=== PATIENT | male | born 1955 | race Caucasian/White ===

== ENCOUNTER 2020-08-02 10:03 | Outpatient (CLI) | payer BC, SELFPAY ==
[2020-08-02 10:39] LABS: Hematocrit 47.9 % (42.0-52.0); Hemoglobin 16.4 g/dL (14.0-18.0); Mean Corpuscular HGB Conc 34.2 g/dl (32-36); Mean Corpuscular Hemoglobin 30.5 pg (26-34); Mean Platelet Volume 10.7 fl (7.4-10.4); Platelet Count Result 194 k/mm3 (150-375); Red Blood Count 5.38 M/mm3 (4.6-6.20); Red Cell Distribution Width 12.5 % (11.5-14.5); White Blood Count 6.2 K/mm3 (4.5-10.0)
[2020-08-02 10:49] LABS: Alanine Aminotransferase 40 U/L (4-50); Alkaline Phosphatase 87 U/L (38-126); Anion Gap 7 mmol/L (8-16); Aspartate Amino Transferase 30 U/L (17-59); Bilirubin,Total 0.9 mg/dL (0.2-1.3); Blood Urea Nitrogen 16 mg/dL (9-20); Calcium 9.1 mg/dL (8.4-10.2); Carbon Dioxide 28 mmol/L (22-30); Chloride 103 mmol/L (98-107); Cholesterol 188 mg/dL (0-200); Estimated Glomerular Filt Rate > 60; Glucose 119 mg/dL (75-110); HDL Direct 27 mg/dL; Potassium 4.2 mmol/L (3.4-5.0); Sodium 138 mmol/L (137-145); Triglycerides 267 mg/dL (<150)
[2020-08-02 10:53] LABS: Add Urine Microscopic? YES; Appearance Urine Clear (Clear); Bacteria Urine Trace /hpf; Bilirubin Urine Negative (Negative); Blood Urine 2+ (Negative); Color Urine Yellow (Yellow); Glucose Urine UA Negative (Negative); Ketones Urine Negative (Negative); Leukocyte Esterase Ur Negative LEU/UL (NEGATIVE); Mucus Urine Few /lpf; Nitrate Urine Negative (Negative); Protein Urine 1+ mg/dL (Negative); Specific Grav Ur 1.019 (1.001-1.035); Squamous Epithelial Cell Urine Moderate /hpf (Few); Urobilinogen Urine Negative mg/dL (<2.0); WBC Urine 0-3 /hpf (0-3)
[2020-08-02 11:00] LABS: LDL Cholesterol Direct 119 mg/dL
[2020-08-02 11:20] LABS: Prostate Specific Antigen 1.2 ng/mL (< OR = 4.0)
== END 2020-08-02 10:04 | disposition home or self-care (01) ==
PROVIDERS: PCP Family Medicine; Visit Provider Family Medicine
DX: Z00.00 Encounter for general adult medical examination without abnormal findings (principal); Z12.5 Encounter for screening for malignant neoplasm of prostate; I10 Essential (primary) hypertension
CPT/HCPCS: 36415; 80053; 80061; 81001; 84153; 84443; 85027

== ENCOUNTER 2021-01-24 08:01 | Outpatient (CLI) | payer BC, SELFPAY | END 2021-01-24 08:02 | disposition home or self-care (01) | LOC: ANHCOVIDVC 08:01 | PROVIDERS: PCP Family Medicine | DX: Z23 Encounter for immunization (principal) | CPT/HCPCS: 0001A; 91300 ==

== ENCOUNTER 2021-02-14 08:01 | Outpatient (CLI) | payer BC, SELFPAY | END 2021-02-14 08:02 | disposition home or self-care (01) | LOC: ANHCOVIDVC 08:02 | PROVIDERS: PCP Family Medicine | DX: Z23 Encounter for immunization (principal) | CPT/HCPCS: 0002A; 91300 ==

== ENCOUNTER 2021-07-18 13:19 | Outpatient (CLI) | payer BC, SELFPAY ==
[2021-07-18 13:49] LABS: Hematocrit 46.5 % (42.0-52.0); Hemoglobin 16.1 g/dL (14.0-18.0); Mean Corpuscular HGB Conc 34.6 g/dl (32-36); Mean Corpuscular Hemoglobin 30.6 pg (26-34); Mean Corpuscular Volume 88.2 fl (80-100); Mean Platelet Volume 10.9 fl (7.4-10.4); Platelet Count Result 203 k/mm3 (150-375); Red Blood Count 5.27 M/mm3 (4.6-6.20); Red Cell Distribution Width 12.4 % (11.5-14.5); White Blood Count 7.6 K/mm3 (4.5-10.0)
[2021-07-18 14:01] LABS: Alanine Aminotransferase 68 U/L (4-50); Albumin Level 4.5 g/dL (3.5-5.1); Alkaline Phosphatase 76 U/L (38-126); Anion Gap 8 mmol/L (8-16); Aspartate Amino Transferase 50 U/L (17-59); Bilirubin,Total 0.7 mg/dL (0.2-1.3); Blood Urea Nitrogen 17 mg/dL (9-20); Calcium 9.2 mg/dL (8.4-10.2); Carbon Dioxide 27 mmol/L (22-30); Chloride 103 mmol/L (98-107); Cholesterol 214 mg/dL (0-200); Estimated Glomerular Filt Rate > 60; Glucose 94 mg/dL (65-110); HDL Direct 28 mg/dL; Potassium 4.1 mmol/L (3.4-5.0); Sodium 138 mmol/L (137-145); Triglycerides 300 mg/dL (<150)
[2021-07-18 14:06] LABS: Add Urine Microscopic? YES; Appearance Urine Clear (Clear); Bacteria Urine Trace /hpf; Bilirubin Urine Negative (Negative); Blood Urine 2+ (Negative); Color Urine Yellow (Yellow); Glucose Urine UA Negative (Negative); Ketones Urine Negative (Negative); Leukocyte Esterase Ur Negative LEU/UL (NEGATIVE); Mucus Urine Rare /lpf; Nitrate Urine Negative (Negative); Protein Urine 1+ mg/dL (Negative); Specific Grav Ur 1.018 (1.001-1.035); Squamous Epithelial Cell Urine Rare /hpf (Few); WBC Urine 0-3 /hpf (0-3)
[2021-07-18 14:12] LABS: LDL Cholesterol Direct 141 mg/dL
[2021-07-18 14:46] LABS: Prostate Specific Antigen 1.6 ng/mL (< OR = 4.0)
== END 2021-07-18 13:20 | disposition home or self-care (01) ==
LOC: ANHLAB 13:21
PROVIDERS: PCP Family Medicine; Visit Provider Family Medicine
DX: Z00.00 Encounter for general adult medical examination without abnormal findings (principal); E78.1 Pure hyperglyceridemia; I10 Essential (primary) hypertension; R35.1 Nocturia
CPT/HCPCS: 36415; 80053; 80061; 81001; 84153; 84443; 85027

== ENCOUNTER 2021-12-19 09:04 | Outpatient (CLI) | payer MEDICARE, OTHER, SELFPAY ==
[2021-12-19 09:51] LABS: Alanine Aminotransferase 43 U/L (4-50); Albumin Level 4.3 g/dL (3.5-5.1); Alkaline Phosphatase 85 U/L (38-126); Anion Gap 10 mmol/L (8-16); Aspartate Amino Transferase 40 U/L (17-59); Blood Urea Nitrogen 17 mg/dL (9-20); Calcium 8.7 mg/dL (8.4-10.2); Carbon Dioxide 26 mmol/L (22-30); Chloride 103 mmol/L (98-107); Cholesterol 213 mg/dL (0-200); Estimated Glomerular Filt Rate > 60; Glucose 117 mg/dL (65-110); HDL Direct 27 mg/dL; Potassium 4.5 mmol/L (3.4-5.0); Sodium 139 mmol/L (137-145); Triglycerides 237 mg/dL (<150)
[2021-12-19 10:03] LABS: LDL Cholesterol Direct 122 mg/dL
== END 2021-12-19 09:05 | disposition home or self-care (01) ==
PROVIDERS: PCP Family Medicine; Visit Provider Family Medicine
DX: E78.1 Pure hyperglyceridemia (principal); I10 Essential (primary) hypertension
CPT/HCPCS: 36415; 80053; 80061

== ENCOUNTER 2022-06-14 14:09 | Outpatient (CLI) | payer MEDICARE, OTHER, SELFPAY ==
[2022-06-14 14:50] LABS: Basophils Absolute Auto 0.1 K/mm3 (0.0-0.1); Basophils Percent Auto 0.3 % (0.2-1.2); Hematocrit 41.9 % (42.0-52.0); Hemoglobin 14.6 g/dL (14.0-18.0); Immature Granulocyte Absolute 0.57 K/mm3 (0.00-0.031); Immature Granulocyte Percent A 2.9 % (0-0.5); Lymphocytes Absolute Auto 0.58 K/mm3 (0.9-3.2); Mean Corpuscular HGB Conc 34.8 g/dl (32-36); Mean Corpuscular Hemoglobin 30.4 pg (26-34); Mean Corpuscular Volume 87.3 fl (80-100); Mean Platelet Volume 11.2 fl (7.4-10.4); Monocytes Absolute Auto 1.4 K/mm3 (0.1-0.6); Monocytes Percent Auto 7.1 % (2.6-8.5); Neutrophils Absolute Auto 16.9 K/mm3 (1.3-6.7); Neutrophils Percent Auto 86.7 % (45.5-73.1); Platelet Count Result 186 k/mm3 (150-375); Red Cell Distribution Width 12.4 % (11.5-14.5); White Blood Count 19.5 K/mm3 (4.5-10.0)
[2022-06-14 14:57] LABS: Alanine Aminotransferase 29 U/L (6-50); Albumin Level 3.8 g/dL (3.5-5.1); Alkaline Phosphatase 98 U/L (38-126); Anion Gap 15 mmol/L (8-16); Aspartate Amino Transferase 35 U/L (17-59); Bilirubin,Total 1.1 mg/dL (0.2-1.3); Blood Urea Nitrogen 54 mg/dL (9-20); Calcium 8.6 mg/dL (8.4-10.2); Carbon Dioxide 17 mmol/L (22-30); Chloride 97 mmol/L (98-107); Estimated Glomerular Filt Rate 13; Glucose 157 mg/dL (65-110); Potassium 3.9 mmol/L (3.4-5.0); Sodium 129 mmol/L (137-145)
== END 2022-06-14 14:10 | disposition home or self-care (01) ==
LOC: ANHLAB 14:11
PROVIDERS: PCP Family Medicine; Visit Provider Physician Assistant
DX: R00.0 Tachycardia, unspecified (principal); R06.02 Shortness of breath; R53.81 Other malaise
CPT/HCPCS: 36415; 80053; 85025

== ENCOUNTER 2022-06-14 18:14 | Inpatient (IN) | payer MEDICARE, OTHER, SELFPAY ==
[2022-06-14] VITALS (7 sets, daily range): BP systolic 103–163; BP diastolic 48–86; PULSE 108–140; RESP 24–43; TEMP 36.2–36.5; O2SAT 90–100; BMI 35.9
--- NOTE | ~2022-06-14 | XR_ITS ---
EXAMINATION: XR chest 1V portable INDICATION: Shortness of breath, pneumonia TECHNIQUE: Portable AP chest at 0750 hours COMPARISON: 06/14/2022 FINDINGS: Patchy left basilar airspace opacities persist with slight improvement. No pleural effusion or pneumothorax. The cardiomediastinal silhouette is stable. IMPRESSION: 1. Left basilar airspace opacities with slight improvement, likely pneumonia. Reviewed, dictated and finalized at location B.
--- NOTE | ~2022-06-14 | XR_ITS ---
EXAMINATION: XR chest 2V Exam Date/Time: 06/14/2022 18:54 CDT HISTORY: sob, tacycardic, hasn't urinated in 2 days hx htn Comparison: 1 day prior. RESULT: Lines, tubes, and devices: None. Lungs and pleura: Left lower lobe airspace disease. Cardiomediastinal silhouette: Stable. Other: No acute osseous or upper abdominal finding. IMPRESSION: Left lower lobe pneumonia. Reviewed, dictated and finalized at location K. IMPRESSION: Left lower lobe pneumonia.
--- NOTE | ~2022-06-14 | US_ITS ---
EXAMINATION: US renal BI DATE: 06/15/2022 08:50 INDICATION: Acute renal failure. TECHNIQUE: Multiple ultrasound grayscale images of the kidneys were obtained. COMPARISON: CT abdomen and pelvis 01/29/2018 FINDINGS: The right kidney measures 12.2 x 6.2 x 7.0 cm. The left kidney measures 12.6 x 6.7 x 6.3 cm. The kidn eys demonstrate normal parenchymal echogenicity. There is no hydronephrosis. The bladder is decompres sed by a Robertson catheter. IMPRESSION: 1. Normal kidneys. No hydronephrosis. Reviewed, dictated and finalized at location A.
--- NOTE | 2022-06-14 18:29 | ECG_ITS ---
Measurements Intervals [place] Rate: 124 P: 32 OK: 148 QRS: 34 QRSD: 103 T: 35 QT: 302 QTc: 434 Interpretive Statements SINUS TACHYCARDIA DELAYED PRECORDIAL R/S TRANSITION BORDERLINE T WAVE ABNORMALITY- INFERIOR LEADS BASELINE ARTIFACT- I, II, III ABNORMAL ECG NO PREVIOUS ECG AVAILABLE FOR COMPARISON Electronically Signed On 06-14-2022 19:24:34 CDT by Preet Aragon D.O.
[2022-06-14 18:41] LABS: Hematocrit 43.3 % (42.0-52.0); Hemoglobin 14.8 g/dL (14.0-18.0); Mean Corpuscular HGB Conc 34.2 g/dl (32-36); Mean Corpuscular Hemoglobin 30.2 pg (26-34); Mean Corpuscular Volume 88.4 fl (80-100); Mean Platelet Volume 11.6 fl (7.4-10.4); Platelet Count Result 201 k/mm3 (150-375); Red Cell Distribution Width 12.6 % (11.5-14.5); White Blood Count 21.1 K/mm3 (4.5-10.0)
[2022-06-14 19:14] LABS: SARS-CoV-2 RNA PCR Negative
[2022-06-14 19:17] LABS: Alanine Aminotransferase 45 U/L (6-50); Albumin Level 3.9 g/dL (3.5-5.1); Alkaline Phosphatase 109 U/L (38-126); Anion Gap 21 mmol/L (8-16); Aspartate Amino Transferase 53 U/L (17-59); Bilirubin,Total 1.1 mg/dL (0.2-1.3); Blood Urea Nitrogen 58 mg/dL (9-20); Calcium 8.7 mg/dL (8.4-10.2); Carbon Dioxide 14 mmol/L (22-30); Chloride 98 mmol/L (98-107); Estimated CRCL calculation 14 ml/min; Estimated Glomerular Filt Rate 9; Glucose 156 mg/dL (65-110); Sodium 133 mmol/L (137-145)
--- NOTE | 2022-06-14 19:51 | ED.GENADULT ---
HPI - General Adult General Chief complaint: Unspecified <DARYL Melchor Last Filed: 06/14/22 21:56> Stated complaint: kidney problems <DARYL Melchor Last Filed: 06/14/22 21:56> Time Seen by Provider: 06/14/22 19:25 <DARYL Melchor Last Filed: 06/14/22 21:56> Source: patient <DARYL Melchor Last Filed: 06/14/22 21:56> Mode of arrival: ambulatory <DARYL Melchor Last Filed: 06/14/22 21:56> Limitations: other (Poor historian) <DARYL Melchor Last Filed: 06/14/22 21:56> History of Present Illness HPI narrative: This is a 66-year-old male that presents to the emergency department for abnormal outpatient labs. Reportedly he was seen by his primary care provider today. Had outpatient blood work that showed an elevated white blood cell count. He was prompted to be seen in the ER. Reports over the weekend he started to feel generally unwell. He was not wanting to eat or drink much. He had a couple of episodes of nausea and vomiting. Reports over the last couple of days he has not urinated much. He reports mild shortness of breath and a cough. Denies fever, chest pain, or lower extremity edema. <DARYL Melchor Last Filed: 06/14/22 21:56> Related Data Allergies/adverse reactions: Allergies Allergy/AdvReac Type Severity Reaction Status Date / Time No Known Allergies Allergy Verified 06/14/22 13:13 <DARYL Melchor Last Filed: 06/14/22 21:56> Review of Systems Review of Systems: CONSTITUTIONAL: Denies fever CARDIOVASCULAR: Denies chest pain, or edema. RESPIRATORY: Reports cough and dyspnea. GASTROINTESTINAL: Reports nausea, vomiting. Denies abdominal pain GENITOURINARY: Denies dysuria <DARYL Melchor Last Filed: 06/14/22 21:56> All systems reviewed & are unremarkable except as noted in HPI and below <DARYL Melchor Filed: 06/14/22 21:56> PMFSH Past Medical History Medical History: Medical History (Updated 06/16/22 @ 09:36 by ADAMS Richards) History of adenomatous polyp of colon Hyperglyceridemia Hypertension Metabolic acidosis Obesity <Aide Roach PA-C - Last Filed: 06/14/22 21:56> Surgical History Surgical History: Surgical History History of intraocular lens implant <Aide Roach PA-C - Last Filed: 06/14/22 21:56> Family History Family History: Family History Mother Kidney disease Other Cancer <Aide Roach PA-C - Last Filed: 06/14/22 21:56> Social History Social History: Social History Smoking packs per day: 1 Smoking cigarettes per day: 20.0 Years smoked: 15 Smoking pack-years: 15.00 Smoking status: Former smoker Tobacco type: cigarettes Second hand tobacco smoke exposure: No Smoking end date: 10/08/94 Alcohol intake: current Drinks per week: 4 Substance use: never Substance use type: does not use Gender identity (if verbalized by the patient): Male Spiritual care concerns: No <Aide Roach PA-C - Last Filed: 06/14/22 21:56> Exam Narrative: GENERAL: Well-appearing, well-nourished, and in no acute distress. HEAD: Normocephalic, atraumatic. EYES: EOMI. ENT: Mucous membranes dry. Oropharynx without tonsillar hypertrophy exudate or other lesions. NECK: Supple. No adenopathy or masses. CHEST: Clear to auscultation. No respiratory distress. No wheezes rales or rhonchi HEART: Regular rate and rhythm. No murmur heard. Normal peripheral pulses. ABDOMEN: Soft, nontender, nondistended, normal active bowel sounds. EXTREMITIES: Normal range of motion. No edema. SKIN: Warm, dry, no rash. NEURO: No focal deficits. Alert and oriented x3. PSYCH: Normal mood and affect <Aide Roach PA-C - Last Filed: 06/14/22 21:56> Course
[2022-06-14 20:19] LABS: Hemoglobin A1C 5.8 % (<5.7)
[2022-06-14 20:25] LABS: Lactic Acid Reflex 2.8 mmol/L (0.7-2.0)
[2022-06-14 20:30] LABS: INR 1.3; Partial Thromboplastin Time 35.6 SECONDS (22.3-36.8); Prothrombin Time 15.7 Seconds (11.1-14.7)
[2022-06-14 20:40] LABS: Base Excess ABG -2.5 mEq/l (+/-2.0); Carboxyhemoglobin 0.2 % THb (0-2.0); Device NASAL CANNULA; Fractional Inspired Oxygen 32 %; HCO3 ABG 19.6 mEq/l (22.0-26.0); Methemoglobin ABG 0.3 %THb (0-1.5); Modified Allen's Test Pass; Oxygen Content ABG 18.5 %vol (16.0-22.0); Oxygen Saturation ABG 95.6 % (95.0-100.0); Oxyhemoglobin 93.9 % THb (90.0-100.0); PO2 ABG 71.6 mmHg (80.0-100.0); PO2 FiO2 Ratio Arterial Blood 2.24 %; Reduced Hemoglobin 5.6 %THb (0-5.0); Site Drawn LEFT RADIAL; pH ABG 7.478 (7.350-7.450)
[2022-06-14] MEDS: SODIUM CHLORIDE 0.9% IV 1,000 ML 100 ML IV CONT (21:30)
[2022-06-14] MEDS: SODIUM CHLORIDE 0.9% IV 1,000 ML 999 ML IV CONT (22:30)
--- NOTE | 2022-06-14 22:34 | ADMGEN ---
This patient, Niall Lugo, was admitted to Medical Room 341-01. Patient/family oriented to hospital policies and general routines including ID bracelet, bed and alarms, visiting hours, pain management, procedures, bathroom and other care routines, personal items, smoking policy, room service/diet, and visiting hours. Information on how to activate the Rapid Response Team has been discussed. Patient/Family are encouraged to report perceived risks to care and to ask questions if they do not understand what they are told or what they should do.
[2022-06-14 23:11] LABS: Reflex Lactic Acid Yes or No Add Lactic
[2022-06-15] VITALS (9 sets, daily range): BP systolic 95–111; BP diastolic 52–60; PULSE 94–120; RESP 20–24; TEMP 36.3–37.3; O2SAT 95
[2022-06-15 00:03] LABS: Lactic Acid 1.6 mmol/L (0.7-2.0)
--- NOTE | 2022-06-15 00:29 | PM.IMHP ---
H&P: HPI History of Present Illness Date/Time: 06/15/22 00:29 Chief Complaint: shortness of breath Narrative: This is a 66-year-old male with past medical history significant for hypertension, Dyslipidemia, obesity. patient presents to the emergency room due to shortness of breath, fatigue, fevers, chills, night sweats, poor appetite, poor oral intake, diarrhea, decreased urine output, for the last 5 days or so, patient denies any back pain, abdominal pain, no nausea, no vomiting, no leg swelling, no pedal swelling, no ankle swelling, he has a cough nonproductive, had dysuria and urgency. preliminary workup was significant for chest x-ray with left lower infiltrate creatinine was 4.2 BUN was 54 sodium 129 bicarb 17 chloride 97. patient was unable to give a sample for urinalysis at the time of my visit. Patient is being admitted for further evaluation management and treatment. Review of Systems Review of Systems: Fatigue, dysuria, shortness of breath, dry cough, poor appetite, poor oral intake, diarrhea. Constitutional: Constitutional: Reports chills, Reports fatigue, Reports fever(s), Reports lethargy, Reports malaise, Reports night sweats and Reports poor appetite Eyes: Eyes: Denies change in vision ENT: Denies dysphagia, Denies vertigo, Denies dizziness, Denies odynophagia and Denies disequilibrium Cardiovascular: Cardiovascular: Denies chest pain, Denies syncope, Denies irregular heart rhythm, Denies lightheadedness, Denies palpitations and Denies dyspnea on exertion Respiratory: Respiratory: Denies change in phlegm color, Reports cough, Denies excessive phlegm production, Reports dyspnea, Reports dyspnea on exertion and Denies wheezing Gastrointestinal: Gastrointestinal: Denies abdominal pain, Denies dyspepsia, Denies heartburn, Reports diarrhea and Denies nausea Genitourinary: Genitourinary: Reports dysuria Musculoskeletal: Musculoskeletal: Reports muscle weakness Integumentary/Breasts: Skin/Breast: Denies rash Neurologic: Denies vertigo, Denies dizziness, Denies focal weakness and Denies Sensory deficit (Neuro) Psychiatric: Psychiatric: Reports no additional psychiatric complaints and Reports as per HPI Endocrine: Endocrine: Denies cold intolerance, Denies fatigue, Denies flushing, Denies heat intolerance, Denies polyphagia, Denies polydipsia and Denies palpitations Hematologic/Lymphatic: Hematologic/Lymphatic: Reports no additional hematologic/lymphatic complaints and Reports as per HPI Allergic/Immunologic: Allergic/Immunologic: Reports no additional allergic/immunologic complaints and Reports as per HPI [facility] Past Medical History Medical History (Updated 06/15/22 @ 13:54 by ADAMS Richards) History of adenomatous polyp of colon Hyperglyceridemia Hypertension Metabolic acidosis Obesity Surgical History Surgical History History of intraocular lens implant Family History Family History Mother Kidney disease Other Cancer Social History Social History Smoking packs per day: 1 Smoking cigarettes per day: 20.0 Years smoked: 15 Smoking pack-years: 15.00 Smoking status: Former smoker Tobacco type: cigarettes Second hand tobacco smoke exposure: No Smoking end date: 10/08/94 Alcohol intake: current Drinks per week: 4 Substance use: never Substance use type: does not use Gender identity (if verbalized by the patient): Male Spiritual care concerns: No Meds Home Medications and Allergies Home Medications Medication Instructions Recorded Confirmed Type losartan 50 mg tablet 50 mg PO DAILY #90 tabs 11/03/21 06/14/22 Rx Allergies Allergy/AdvReac Type Severity Reaction Status Date / Time No Known Allergies Allergy Verified 06/14/22 13:13 Vital Signs Vital Signs - 24 hr 06/14/22
[2022-06-15] MEDS: SODIUM CHLORIDE 0.9% IV 1,000 ML 100 ML IV CONT (01:27)
[2022-06-15 01:46] LABS: Sodium Urine Random 11 meq/L
[2022-06-15 01:56] LABS: Creatinine Urine 386.4 mg/dL
[2022-06-15 06:14] LABS: Basophils Percent Auto 0.3 % (0.2-1.2); Hematocrit 37.5 % (42.0-52.0); Immature Granulocyte Absolute 0.19 K/mm3 (0.00-0.031); Immature Granulocyte Percent A 1.2 % (0-0.5); Lymphocytes Absolute Auto 0.75 K/mm3 (0.9-3.2); Lymphocytes Percent Auto 4.8 % (18.3-44.2); Mean Corpuscular HGB Conc 34.7 g/dl (32-36); Mean Corpuscular Hemoglobin 30.2 pg (26-34); Monocytes Absolute Auto 1.1 K/mm3 (0.1-0.6); Monocytes Percent Auto 6.7 % (2.6-8.5); Neutrophils Absolute Auto 13.7 K/mm3 (1.3-6.7); Platelet Count Result 152 k/mm3 (150-375); Red Blood Count 4.31 M/mm3 (4.6-6.20); Red Cell Distribution Width 12.7 % (11.5-14.5); White Blood Count 15.7 K/mm3 (4.5-10.0)
[2022-06-15 06:28] LABS: Anion Gap 17 mmol/L (8-16); Blood Urea Nitrogen 71 mg/dL (9-20); Calcium 7.7 mg/dL (8.4-10.2); Carbon Dioxide 17 mmol/L (22-30); Chloride 97 mmol/L (98-107); Estimated CRCL calculation 14 ml/min; Estimated Glomerular Filt Rate 9; Glucose 123 mg/dL (65-110); Potassium 3.8 mmol/L (3.4-5.0); Sodium 131 mmol/L (137-145)
--- NOTE | 2022-06-15 09:30 | PM.IMPN ---
Progress Note: A&P Assessment and Plan (1) Acute kidney failure: Qualifiers: Acute renal failure type: unspecified Qualified Code(s): N17.9 - Acute kidney failure, unspecified Code(s): N17.9 - Acute kidney failure, unspecified Status: Acute Assessment and Plan: BUN/Cr 71/6.00 Baseline appears to be 1.0 IV fluids given in the ED Seems to be related to dehydration Continuous fluids changed to bicarbonate at 50ml/hr Nephrology consulted thank you Continue to trend labs Kidney ultrasound showed normal kidneys (2) Pneumonia: Qualifiers: Laterality: left Lung location: lower lobe of lung Pneumonia type: due to unspecified organism Qualified Code(s): J18.9 - Pneumonia, unspecified organism Code(s): J18.9 - Pneumonia, unspecified organism Status: Acute Assessment and Plan: Chest xray shows left lower lobe pneumonia WBC upon arrival elevated at 21.1, currently 15.7 Continue IV antibiotics Trend labs Trend chest xray Sputum culture pending Blood cultures pending Adjust antibiotics to culture results (3) HTN (hypertension): Code(s): I10 - Essential (primary) hypertension Status: Acute Assessment and Plan: BP is 95/60 Hold losartan Continue to trend BP Adjust therapy as indicated (4) Hyperlipidemia: Code(s): E78.5 - Hyperlipidemia, unspecified Status: Acute Assessment and Plan: No medicated Lipid panel in the am (5) Metabolic acidosis: Code(s): E87.2 - Acidosis Status: Acute Assessment and Plan: ABG is metabolic acidosis Bicarb on board Supplement oxygen wean to maintain saturation >90% Probably related to the kidney failure Continue to trend labs Time Spent With Patient Time with patient: Greater than 35 minutes Subjective Date/time seen: 06/15/2230 Interval history: Patient is feeling better today. He stated that they are trying to collect urine to do further studies. It appears that his FENa score was 0.1% which would indicate pre renal. He does have a PNA on the chest xray. He also stated he did not become short of breath until he was walking in from the parking lot. He denies any chest pain, shortness of breath, nausea, vomiting diarrhea constipation. His mother and daughter were in the room and update was given. later in the afternoon Review of Systems Review of Systems: All systems reviewed & are unremarkable except as noted in HPI and below Exam Const: General: cooperative, healthy appearing, no acute distress, well developed, alert and awake Nutritional Appearance: well nourished Orientation/consciousness: patient oriented x3 Limitations: no limitations HENMT: Head: normal to inspection Ears: hearing grossly normal bilaterally General nose exam: Normal external nose present Mouth: Yes Normal oral and palatal mucosa present, Yes lip normal and Yes tongue normal Teeth and gingiva: abnormal tooth and associated gingiva and poor dentition Eyes: General: appearance normal, both eyes and all related structures Neck: Neck: normal visual inspection, full ROM, trachea midline and supple Chest: Chest palpation & inspection: normal inspection of the chest Resp: Effort & Inspection: normal respiratory effort and able to speak in complete sentences Auscultation: clear to auscultation bilaterally Cardio: Jugular venous distension: no JVD Rate: regular rate Rhythm: regular rhythm Heart sounds: S1 normal heart sound present and S2 normal heart sound present Peripheral pulses: Peripheral pulses 2+ throughout GI: Inspection: normal to inspection GI Palp: Yes Soft to palpation and No Tenderness to palpation present (GI) Auscultation: normal bowel sounds Urinary Catheter: Urinary Catheter: patent and draining and urine clear Skin: General skin exam: normal color and no rashes or lesions no
--- NOTE | 2022-06-15 09:30 | P.PNIM_ITS ---
Progress Note: A&P Assessment and Plan (1) Acute kidney failure: Qualifiers: Acute renal failure type: unspecified Qualified Code(s): N17.9 - Acute kidney failure, unspecified Code(s): N17.9 - Acute kidney failure, unspecified Status: Acute Assessment and Plan: * BUN/Cr 71/6.00 * Baseline appears to be 1.0 * IV fluids given in the ED * Seems to be related to dehydration * Continuous fluids changed to bicarbonate at 50ml/hr * Nephrology consulted thank you * Continue to trend labs * Kidney ultrasound showed normal kidneys (2) Pneumonia: Qualifiers: Laterality: left Lung location: lower lobe of lung Pneumonia type: due to unspecified organism Qualified Code(s): J18.9 - Pneumonia, unspecified organism Code(s): J18.9 - Pneumonia, unspecified organism Status: Acute Assessment and Plan: * Chest xray shows left lower lobe pneumonia * WBC upon arrival elevated at 21.1, currently 15.7 * Continue IV antibiotics * Trend labs * Trend chest xray * Sputum culture pending * Blood cultures pending * Adjust antibiotics to culture results (3) HTN (hypertension): Code(s): I10 - Essential (primary) hypertension Status: Acute Assessment and Plan: * BP is 95/60 * Hold losartan * Continue to trend BP * Adjust therapy as indicated (4) Hyperlipidemia: Code(s): E78.5 - Hyperlipidemia, unspecified Status: Acute Assessment and Plan: * No medicated * Lipid panel in the am (5) Metabolic acidosis: Code(s): E87.2 - Acidosis Status: Acute Assessment and Plan: * ABG is metabolic acidosis * Bicarb on board * Supplement oxygen wean to maintain saturation >90% * Probably related to the kidney failure * Continue to trend labs Time Spent With Patient Time with patient: Greater than 35 minutes Subjective Date/time seen: 06/15/22 0930 Interval history: Patient is feeling better today. He stated that they are trying to collect urine to do further studies. It appears that his FENa score was 0.1% which would indicate pre renal. He does have a PNA on the chest xray. He also stated he did not become short of breath until he was walking in from the parking lot. He denies any chest pain, shortness of breath, nausea, vomiting diarrhea constipation. His mother and daughter were in the room and update was given. later in the afternoon Review of Systems Review of Systems: All systems reviewed & are unremarkable except as noted in HPI and below Exam Const: General: cooperative, healthy appearing, no acute distress, well developed, alert and awake Nutritional Appearance: well nourished Orientation/consciousness: patient oriented x3 Limitations: no limitations HENMT: Head: normal to inspection Ears: hearing grossly normal bilaterally General nose exam: Normal external nose present Mouth: Yes Normal oral and palatal mucosa present, Yes lip normal and Yes tongue normal Teeth and gingiva: abnormal tooth and associated gingiva and poor dentition Eyes: General: appearance normal, both eyes and all related structures Neck: Neck: normal visual inspection, full ROM, trachea midline and supple Chest: Chest palpation & inspection: normal inspection of the chest Resp: Effort & Inspection: normal respiratory effort and able
[2022-06-15 10:33] LABS: Urea Random Urine 455 MG/DL
--- NOTE | 2022-06-15 13:33 | PM.CNNEP ---
Assessment and Plan Assessment and plan (1) Acute kidney failure: Qualifiers: Acute renal failure type: unspecified Qualified Code(s): N17.9 - Acute kidney failure, unspecified Code(s): N17.9 - Acute kidney failure, unspecified Status: Acute Assessment and Plan: The patient has underlying normal kidney function. The patient has acute kidney injury. renal ultrasound is normal. Urine electrolytes are pre renal. No urinalysis done. He might be dehydrated. He has not eaten for 5 days. He also has pneumonia which means increased respiratory rate and therefore increase insensible loss. His urine sodium is low and his urine creatinine is very high also indicating dehydration. He has been getting some IV fluids. The patient has pneumonia. This can also affect his kidneys as well. He is getting antibiotics and supportive care. Other causes include glomerulonephritis . Usually people have other extrarenal manifestations which he does not have, And also high blood pressure and edema which he does not have either. will see what his urinalysis shows. Allergic interstitial nephritis is unlikely because he is not on any new medications. Rhabdomyolysis is always a possibility, especially with infections. Will check a CPK. At this point will get the CPK, urinalysis, and continue IV fluids. Will check another creatinine tomorrow. I am hoping hydration alone is enough to improve the renal function such that we do not have to do dialysis. Will follow this along. (2) Pneumonia: Qualifiers: Laterality: left Lung location: lower lobe of lung Pneumonia type: due to unspecified organism Qualified Code(s): J18.9 - Pneumonia, unspecified organism Code(s): J18.9 - Pneumonia, unspecified organism Status: Acute Assessment and Plan: the patient has left lower lobe infiltrate. He is getting antibiotics. Blood and sputum cultures were ordered. (3) Hyperglyceridemia: Code(s): E78.1 - Pure hyperglyceridemia Status: Acute Assessment and Plan: The patient is not on any medications for this. (4) HTN (hypertension): Code(s): I10 - Essential (primary) hypertension Status: Acute Assessment and Plan: He is on losartan at home. This is on hold now with the renal failure. Blood pressures are okay so far. We can add amlodipine if we need something else. (5) Metabolic acidosis: Code(s): E87.2 - Acidosis Status: Acute Assessment and Plan: The patient has a bicarbonate of 17. His anion gap is 17 as well. His normal anion gap is 10. So the delta anion gap is equal to the delta bicarbonate. This is peer high anion gap metabolic acidosis. His lactic acid was a little high yesterday but recheck was normal. Most likely most of the acidosis is from uremic poisoning. His bicarbonate has not improved overnight with IV fluid administration. Will change the IV fluids to bicarbonate it fluid. History of Present Illness Reason for Consult Consult date: 06/15/22 Chief Complaint Chief complaint: Acute Kidney Failure,Pneumonia History of Present Illness Narrative: Niall is a very pleasant 66-year-old gentleman who has multiple medical problems including hypertriglyceridemia, hypertension, obesity. The patient says he felt well until about 5 days ago. He went from being completely normal to having nausea, poor appetite, and could not eat. On the morning of that 1st day he had a small boxed breakfast and did not sit right then he vomited. Said he has not been able to eat anything. 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 He still did not get better and so he called his primary care physician who sent him to get some blood work done. He went to get it done and he was called and sent to the ER. After he had his flat tire fixed he di
[2022-06-15 15:57] LABS: Appearance Urine Cloudy (Clear); Bilirubin Urine Negative (Negative); Blood Urine 3+ (Negative); Color Urine Yellow (Yellow); Glucose Urine UA Negative (Negative); Ketones Urine Negative (Negative); Leukocyte Esterase Ur 2+ LEU/UL (NEGATIVE); Nitrate Urine Negative (Negative); Protein Urine 2+ mg/dL (Negative); Specific Grav Ur >= 1.030 (1.001-1.035); Urobilinogen Urine 0.2 mg/dL (<2.0)
[2022-06-15 16:08] LABS: Amorphous Sediment Urine Few; Bacteria Urine Trace /hpf; Mucus Urine Few /lpf; RBC Urine >75 /hpf (0-2); Squamous Epithelial Cell Urine Many /hpf (Few); WBC Urine >75 /hpf (0-3)
[2022-06-15 16:10] LABS: Add Urine Microscopic? YES
[2022-06-15] MEDS: SODIUM BICARBONATE 8.4% 100 MEQ in WATER, STERILE FOR INJECTION 1,000 ML 50 MEQ IV CONT (16:19)
[2022-06-15 19:04] LABS: Creatine Kinase 4975 U/L (55-170)
[2022-06-16] VITALS (8 sets, daily range): BP systolic 100–109; BP diastolic 58–62; PULSE 75–85; RESP 18–20; TEMP 36.3–36.8; O2SAT 95–97
[2022-06-16 05:22] LABS: Basophils Percent Auto 0.3 % (0.2-1.2); Hematocrit 38.3 % (42.0-52.0); Hemoglobin 13.4 g/dL (14.0-18.0); Immature Granulocyte Percent A 1.3 % (0-0.5); Immature Platelet Fraction Pct 9.2 % (0.9-11.2); Lymphocytes Absolute Auto 0.49 K/mm3 (0.9-3.2); Lymphocytes Percent Auto 6.4 % (18.3-44.2); Mean Corpuscular Hemoglobin 30.7 pg (26-34); Mean Corpuscular Volume 87.6 fl (80-100); Mean Platelet Volume 11.9 fl (7.4-10.4); Monocytes Absolute Auto 0.6 K/mm3 (0.1-0.6); Monocytes Percent Auto 7.6 % (2.6-8.5); Neutrophils Absolute Auto 6.4 K/mm3 (1.3-6.7); Neutrophils Percent Auto 84.4 % (45.5-73.1); Platelet Count Result 137 k/mm3 (150-375); Red Blood Count 4.37 M/mm3 (4.6-6.20); Red Cell Distribution Width 12.8 % (11.5-14.5); White Blood Count 7.6 K/mm3 (4.5-10.0)
[2022-06-16 05:36] LABS: Alanine Aminotransferase 69 U/L (6-50); Albumin Level 3.2 g/dL (3.5-5.1); Alkaline Phosphatase 64 U/L (38-126); Anion Gap 18 mmol/L (8-16); Aspartate Amino Transferase 133 U/L (17-59); Bilirubin,Total 0.4 mg/dL (0.2-1.3); Blood Urea Nitrogen 89 mg/dL (9-20); Calcium 7.3 mg/dL (8.4-10.2); Carbon Dioxide 17 mmol/L (22-30); Chloride 97 mmol/L (98-107); Cholesterol 93 mg/dL (0-200); Estimated CRCL calculation 13 ml/min; Estimated Glomerular Filt Rate 8; Glucose 123 mg/dL (65-110); HDL Direct 10 mg/dL; Magnesium 2.6 mg/dL (1.6-2.3); Phosphorus 7.5 mg/dL (2.5-4.5); Potassium 3.4 mmol/L (3.4-5.0); Sodium 132 mmol/L (137-145); Triglycerides 253 mg/dL (<150)
[2022-06-16 05:45] LABS: LDL Cholesterol Direct 32 mg/dL
[2022-06-16 10:24] LABS: Hepatitis B Surface Antigen Negative (Negative)
[2022-06-16 10:29] LABS: HAV RESULT Negative (Negative); Hepatitis B Core IgM Result Negative (Negative)
[2022-06-16 10:41] LABS: Hepatitis C Virus Antibody Negative (Negative)
[2022-06-16 10:47] LABS: Appearance Urine Cloudy (Clear); Bilirubin Urine Negative (Negative); Blood Urine 3+ (Negative); Color Urine Yellow (Yellow); Glucose Urine UA Negative (Negative); Ketones Urine Negative (Negative); Leukocyte Esterase Ur Trace LEU/UL (Negative); Nitrate Urine Negative (Negative); Protein Urine 2+ mg/dL (Negative); Specific Grav Ur 1.025 (1.001-1.035); Urobilinogen Urine 0.2 mg/dL (<2.0); pH Urine 5.5 (5.0-9.0)
[2022-06-16 11:00] LABS: Amorphous Sediment Urine Few; Bacteria Urine Trace /hpf; Mucus Urine Rare /lpf; RBC Urine >75 /hpf (0-2); WBC Urine 21-30 /hpf
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
[2022-06-16 11:08] LABS: Add Urine Microscopic? YES
--- NOTE | 2022-06-16 13:01 | PM.PNNEP ---
Progress Note: A&P Assessment and Plan (1) Acute kidney failure: Qualifiers: Acute renal failure type: unspecified Qualified Code(s): N17.9 - Acute kidney failure, unspecified Code(s): N17.9 - Acute kidney failure, unspecified Status: Acute Assessment and Plan: The patient has underlying normal kidney function. The patient has acute kidney injury. renal ultrasound is normal. Urine electrolytes are pre renal. UA shows blood, wbcs, rbcs. CK is 4900. I looked at a sample of urine this am and his urine shows ATN casts (muddy brown casts) consistent with ATN. he does not have dysmorphic rbcs nor RBC casts and so I doubt that this is a GN. most likely dehydration and ATN from pneumonia. CK is high but probably not the primary issue. however to protect the kidneys he is on bicarb drip. will try bumex now and in 6 hours and see if we can incite some more urine output. we discussed that his BUN and Cr are very high and if they don't improve soon he may develop uremic symptoms or volume issues. if so he would need dialysis temporarily. (2) Pneumonia: Qualifiers: Laterality: left Lung location: lower lobe of lung Pneumonia type: due to unspecified organism Qualified Code(s): J18.9 - Pneumonia, unspecified organism Code(s): J18.9 - Pneumonia, unspecified organism Status: Acute Assessment and Plan: the patient has left lower lobe infiltrate. He is getting antibiotics. Blood and sputum cultures were ordered. (3) Hyperglyceridemia: Code(s): E78.1 - Pure hyperglyceridemia Status: Acute Assessment and Plan: The patient is not on any medications for this. (4) HTN (hypertension): Code(s): I10 - Essential (primary) hypertension Status: Acute Assessment and Plan: He is on losartan at home. This is on hold now with the renal failure. Blood pressures are okay so far. We can add amlodipine if we need something else. (5) Metabolic acidosis: Code(s): E87.2 - Acidosis Status: Acute Assessment and Plan: The patient has a bicarbonate of 17. no sx from the acidosis. likely due to uremic toxins. he is on a bicarb drip. Subjective Date/time seen: 06/16/22 13:01 Interval history: patient is feeling okay. no nausea. no sob. eating okay still has galvez in. not much urine output. Review of Systems ENT: Comments: The patient feels about the same. No chest pain or shortness of breath eating is just okay. Cardiovascular: Cardiovascular: Reports no additional cardiovascular complaints Respiratory: Respiratory: Reports no additional respiratory complaints Gastrointestinal: Gastrointestinal: Reports no additional gastrointestinal complaints Genitourinary: Genitourinary: Reports no additional male genitourinary complaints Exam Narrative: WDWN in NAD skin no rash head ncat lungs some crackles at left base.no egophony cor reg no rub or gallop abd BS+ nontender and soft ext no edema. Objective Data Vital Signs Vital Signs: Vital Signs - 24 hr 06/15/22 14:00 06/15/22 16:00 06/15/22 20:33 Temperature 36.6 C 36.3 C L Pulse Rate 99 94 94 Respiratory Rate 20 20 Blood Pressure 110/52 L 111/52 L Pulse Oximetry 95 95 Oxygen Delivery 06/15/22 20:00 06/16/22 00:00 06/16/22 04:12 Temperature 36.3 C L Pulse Rate 95 82 85 Respiratory Rate 18 Blood Pressure 100/59 L Pulse Oximetry 95 Oxygen Delivery 06/16/22 04:00 06/16/22 08:45 06/16/22 08:45 Temperature Pulse Rate 76 75 Respiratory Rate Blood Pressure Pulse Oximetry 95 Oxygen Delivery Room Air Intake/Output Intake/Output: Intake & Output 06/13/22 06/14/22 06/15/22 06/16/22 23:59 23:59 23:59 23:59 Intake Total 1300 3162 340 Output Total 530 450 Balance 1300 2632 -110 Meds/Results Medications: Active Medications Generic Name Dose Ro
[2022-06-16] MEDS: SODIUM BICARBONATE 8.4% 100 MEQ in WATER, STERILE FOR INJECTION 1,000 ML 50 MEQ IV CONT (14:04)
[2022-06-16] MEDS: BUMETANIDE INJ 1 MG/4 ML VIAL 2 MG IV PUSH ×2 (15:18→20:40)
[2022-06-17] VITALS (9 sets, daily range): BP systolic 114–118; BP diastolic 57–70; PULSE 58–74; RESP 16–18; TEMP 35.8–36.8; O2SAT 95–96
[2022-06-17 05:54] LABS: Basophils Percent Auto 0.4 % (0.2-1.2); Eosinophils Absolute Auto 0.1 K/mm3 (0-0.3); Hematocrit 39.7 % (42.0-52.0); Hemoglobin 13.7 g/dL (14.0-18.0); Immature Granulocyte Absolute 0.09 K/mm3 (0.00-0.031); Immature Granulocyte Percent A 1.8 % (0-0.5); Lymphocytes Absolute Auto 0.53 K/mm3 (0.9-3.2); Lymphocytes Percent Auto 10.8 % (18.3-44.2); Mean Corpuscular HGB Conc 34.5 g/dl (32-36); Mean Corpuscular Hemoglobin 30.2 pg (26-34); Mean Corpuscular Volume 87.6 fl (80-100); Mean Platelet Volume 12.3 fl (7.4-10.4); Monocytes Absolute Auto 0.7 K/mm3 (0.1-0.6); Monocytes Percent Auto 14.7 % (2.6-8.5); Neutrophils Absolute Auto 3.5 K/mm3 (1.3-6.7); Neutrophils Percent Auto 71.3 % (45.5-73.1); Platelet Count Result 135 k/mm3 (150-375); Red Blood Count 4.53 M/mm3 (4.6-6.20); Red Cell Distribution Width 12.6 % (11.5-14.5); White Blood Count 4.9 K/mm3 (4.5-10.0)
[2022-06-17 06:06] LABS: Albumin Level 3.2 g/dL (3.5-5.1); Anion Gap 19 mmol/L (8-16); Blood Urea Nitrogen 98 mg/dL (9-20); Calcium 7.4 mg/dL (8.4-10.2); Carbon Dioxide 19 mmol/L (22-30); Chloride 96 mmol/L (98-107); Estimated CRCL calculation 16 ml/min; Estimated Glomerular Filt Rate 11; Glucose 152 mg/dL (65-110); Phosphorus 7.4 mg/dL (2.5-4.5); Sodium 134 mmol/L (137-145)
[2022-06-17 06:08] LABS: Alanine Aminotransferase 81 U/L (6-50); Albumin Level 3.2 g/dL (3.5-5.1); Alkaline Phosphatase 66 U/L (38-126); Anion Gap 19 mmol/L (8-16); Aspartate Amino Transferase 117 U/L (17-59); Bilirubin,Total 0.5 mg/dL (0.2-1.3); Blood Urea Nitrogen 98 mg/dL (9-20); Calcium 7.5 mg/dL (8.4-10.2); Carbon Dioxide 19 mmol/L (22-30); Chloride 96 mmol/L (98-107); Creatine Kinase 1078 U/L (55-170); Estimated CRCL calculation 16 ml/min; Estimated Glomerular Filt Rate 10; Glucose 150 mg/dL (65-110); Magnesium 2.6 mg/dL (1.6-2.3); Phosphorus 7.4 mg/dL (2.5-4.5); Sodium 134 mmol/L (137-145)
--- NOTE | 2022-06-17 09:53 | P.PNIM_ITS ---
Progress Note: A&P Assessment and Plan (1) Rhabdomyolysis: Code(s): M62.82 - Rhabdomyolysis Status: Acute Assessment and Plan: * CK Decreased today to 1078 from 4975 yesterday. * Continue IV fluids As ordered by Nephrology of sodium bicarb 100 mil equivalents in sterile water at 50 mL/hour. * Trend urine output * Trend labs * Nephrology on the case * Trend CK * Questionable etiology of dehydration. (2) Acute kidney failure: Qualifiers: Acute renal failure type: unspecified Qualified Code(s): N17.9 - Acute kidney failure, unspecified Code(s): N17.9 - Acute kidney failure, unspecified Status: Acute Assessment and Plan: * BUN/Cr 98/5.4 * Baseline appears to be 1.0 * Seems to be related to dehydration * Continuous fluids changed to bicarbonate at 50ml/hr * Nephrology Managing * Continue to trend labs, concern for uremia * Kidney ultrasound showed normal kidneys (3) Pneumonia: Qualifiers: Laterality: left Lung location: lower lobe of lung Pneumonia type: due to unspecified organism Qualified Code(s): J18.9 - Pneumonia, unspecified organism Code(s): J18.9 - Pneumonia, unspecified organism Status: Acute Assessment and Plan: * Chest xray shows left lower lobe pneumonia * WBC's decreased to 4.9. * Continue IV antibiotics Rocephin and Zithromax. * Trend labs And vital signs * Trend chest xray * Sputum culture pending * Blood cultures NGTD * Adjust antibiotics to culture results preliminary blood cultures are negative as and is preliminary sputum sample. Urine culture is still pending. * Pneumococcal and Legionella are currently pending. (4) Transaminitis: Code(s): R74.01 - Elevation of levels of liver transaminase levels Status: Acute Assessment and Plan: * AST/ALT 117/81 * Hep panel Resulted and is negative. * Continue to trend * Consider RUQ ultrasound if Acute worsening (5) HTN (hypertension): Code(s): I10 - Essential (primary) hypertension Status: Acute Assessment and Plan: * BP is stable * Hold losartan * Continue to trend BP * Adjust therapy as indicated (6) Hyperlipidemia: Code(s): E78.5 - Hyperlipidemia, unspecified Status: Acute Assessment and Plan: * No medicated * Lipid panel Cholesterol 93, Triglycerides 253, LDL 93, HDL 10 * Will hold on starting any medications since liver enzymes are slightly elevated (7) Metabolic acidosis: Code(s): E87.2 - Acidosis Status: Acute Assessment and Plan: * ABG is metabolic acidosis * Bicarb on board * Supplement oxygen wean to maintain saturation >90% * Probably related to the kidney failure * Continue to trend labs * nephrology managing along with medicine Time Spent With Patient Time with patient: 15 - 25 minutes Subjective Date/time seen: 06/17/22 09:32 This patient was examined at the bedside today in interval assessment. He has no new complaints this morning. He reports overall he thinks he is starting to feel better. Labs this morning show an interval decrease in creatinine from 6.6 yesterday down to 5.4 with hydration. In addition his potassium has decreased from 3.4 yesterday to 3.0 today. His CK has decreased from 4975 yesterday to 1078 today. Patient's AST has decreased from 11/06 3 yesterday 02
--- NOTE | 2022-06-17 09:53 | PM.IMPN ---
Progress Note: A&P Assessment and Plan (1) Rhabdomyolysis: Code(s): M62.82 - Rhabdomyolysis Status: Acute Assessment and Plan: CK Decreased today to 1078 from 4975 yesterday. Continue IV fluids As ordered by Nephrology of sodium bicarb 100 mil equivalents in sterile water at 50 mL/hour. Trend urine output Trend labs Nephrology on the case Trend CK Questionable etiology of dehydration. (2) Acute kidney failure: Qualifiers: Acute renal failure type: unspecified Qualified Code(s): N17.9 - Acute kidney failure, unspecified Code(s): N17.9 - Acute kidney failure, unspecified Status: Acute Assessment and Plan: BUN/Cr 98/5.4 Baseline appears to be 1.0 Seems to be related to dehydration Continuous fluids changed to bicarbonate at 50ml/hr Nephrology Managing Continue to trend labs, concern for uremia Kidney ultrasound showed normal kidneys (3) Pneumonia: Qualifiers: Laterality: left Lung location: lower lobe of lung Pneumonia type: due to unspecified organism Qualified Code(s): J18.9 - Pneumonia, unspecified organism Code(s): J18.9 - Pneumonia, unspecified organism Status: Acute Assessment and Plan: Chest xray shows left lower lobe pneumonia WBC's decreased to 4.9. Continue IV antibiotics Rocephin and Zithromax. Trend labs And vital signs Trend chest xray Sputum culture pending Blood cultures NGTD Adjust antibiotics to culture results preliminary blood cultures are negative as and is preliminary sputum sample. Urine culture is still pending. Pneumococcal and Legionella are currently pending. (4) Transaminitis: Code(s): R74.01 - Elevation of levels of liver transaminase levels Status: Acute Assessment and Plan: AST/ALT 117/81 Hep panel Resulted and is negative. Continue to trend Consider RUQ ultrasound if Acute worsening (5) HTN (hypertension): Code(s): I10 - Essential (primary) hypertension Status: Acute Assessment and Plan: BP is stable Hold losartan Continue to trend BP Adjust therapy as indicated (6) Hyperlipidemia: Code(s): E78.5 - Hyperlipidemia, unspecified Status: Acute Assessment and Plan: No medicated Lipid panel Cholesterol 93, Triglycerides 253, LDL 93, HDL 10 Will hold on starting any medications since liver enzymes are slightly elevated (7) Metabolic acidosis: Code(s): E87.2 - Acidosis Status: Acute Assessment and Plan: ABG is metabolic acidosis Bicarb on board Supplement oxygen wean to maintain saturation >90% Probably related to the kidney failure Continue to trend labs nephrology managing along with medicine Time Spent With Patient Time with patient: 15 - 25 minutes Subjective Date/time seen: 06/17/22 09:32 This patient was examined at the bedside today in interval assessment. He has no new complaints this morning. He reports overall he thinks he is starting to feel better. Labs this morning show an interval decrease in creatinine from 6.6 yesterday down to 5.4 with hydration. In addition his potassium has decreased from 3.4 yesterday to 3.0 today. His CK has decreased from 4975 yesterday to 1078 today. Patient's AST has decreased from 11/06 3 yesterday 11/08/2016 today and his ALT increased from 69 yesterday to 81 today. Patient denies that he had any decreased appetite prior to presenting to the emergency room For this provider despite what is mentioned in the emergency room note and the H&P. Patient seems to be a poor historian and is not forthcoming with information. Currently he denies any chest pain or dyspnea, he reports that he has a poor appetite because are food is not good but he reports he is having better output with both urine and bowels. Review of Systems Review of Systems: All systems revi
[2022-06-17] MEDS: POTASSIUM CHLORIDE 20 MEQ TABLET.ER 40 MEQ PO (10:44)
[2022-06-17] MEDS: POTASSIUM CHLORIDE 20 MEQ TABLET.ER PO (10:45)
--- NOTE | 2022-06-17 11:54 | PM.PNNEP ---
Progress Note: A&P Assessment and Plan (1) Acute kidney failure: Qualifiers: Acute renal failure type: unspecified Qualified Code(s): N17.9 - Acute kidney failure, unspecified Code(s): N17.9 - Acute kidney failure, unspecified Status: Acute Assessment and Plan: The patient has underlying normal kidney function. The patient has acute kidney injury. renal ultrasound is normal. Urine electrolytes are pre renal. UA shows blood, wbcs, rbcs. CK is 4900. Urine under the microscope shows muddy brown casts. most likely dehydration and ATN from pneumonia. His creatinine came down to 5.4. CK is down to a 1078. CO2 is up to 19. He responded dramatically to the IV diuretics last night. He made 3000cc overnight. He may have converted to post ATN diuresis so will hold off on more diuretics today. Will continue IV bicarb drip for another day. Repeat CK and renal panel tomorrow. Follow urine output and give diuretics as needed. (2) Pneumonia: Qualifiers: Laterality: left Lung location: lower lobe of lung Pneumonia type: due to unspecified organism Qualified Code(s): J18.9 - Pneumonia, unspecified organism Code(s): J18.9 - Pneumonia, unspecified organism Status: Acute Assessment and Plan: the patient has left lower lobe infiltrate. He is getting antibiotics. Blood and sputum cultures were ordered. (3) Hyperglyceridemia: Code(s): E78.1 - Pure hyperglyceridemia Status: Acute Assessment and Plan: The patient is not on any medications for this. (4) HTN (hypertension): Code(s): I10 - Essential (primary) hypertension Status: Acute Assessment and Plan: He is on losartan at home. This is on hold now with the renal failure. Blood pressures are okay so far. We can add amlodipine if we need something else. (5) Metabolic acidosis: Code(s): E87.2 - Acidosis Status: Acute Assessment and Plan: The patient has a bicarbonate of 19 now. no sx from the acidosis. likely due to uremic toxins. he is on a bicarb drip. Check again tomorrow Subjective Date/time seen: 06/17/22 11:54 Interval history: patient is feeling okay. He denies nausea or vomiting. He ate some breakfast. Exam Narrative: WDWN in NAD skin no rash head ncat lungs some crackles at left base.no egophony cor reg no rub or gallop abd BS+ nontender and soft ext no edema or cyanosis Objective Data Vital Signs Vital Signs: Vital Signs - 24 hr 06/16/22 12:00 06/16/22 14:00 06/16/22 20:53 Temperature 36.7 C 36.8 C Pulse Rate 78 78 76 Respiratory Rate 20 18 Blood Pressure 102/62 109/58 L Pulse Oximetry 96 97 Oxygen Delivery 06/16/22 20:00 06/16/22 20:00 06/17/22 00:00 Temperature Pulse Rate 75 76 69 Respiratory Rate 18 Blood Pressure Pulse Oximetry 97 Oxygen Delivery Room Air 06/17/22 04:00 06/17/22 05:51 06/17/22 08:00 Temperature 36.8 C Pulse Rate 69 71 58 L Respiratory Rate 18 Blood Pressure 118/57 L Pulse Oximetry 96 Oxygen Delivery Intake/Output Intake/Output: Intake & Output 06/14/22 06/15/22 06/16/22 06/17/22 23:59 23:59 23:59 23:59 Intake Total 1300 3162 2280 240 Output Total 530 1050 3000 Balance 1300 2632 1230 -2760 Meds/Results Medications: Active Medications Generic Name Dose Route Start Last Admin Trade Name Brandy PRN Reason Stop Dose Admin Ceftriaxone Sodium/Dextrose 1 gm in 50 mls @ 100 mls/hr 06/15/22 21:00 06/16/22 21:15 Rocephin 1 Gm/D5w 50 Ml IVPB Infused HS HIRAL Infusion Azithromycin 500 mg in 250 mls @ 250 mls/hr 06/15/22 21:00 06/16/22 21:45 Zithromax IVPB Infused HS HIRAL Infusion Sodium Bicarbonate 100 meq/ 1,100 mls @ 50 mls/hr 06/15/22 14:00 06/16/22 14:04 Sterile Water IV CONT 50 mls/hr .Q22H HIRAL Administration Radiology Results: ITS Impressions [facility]
[2022-06-18] VITALS (8 sets, daily range): BP systolic 119–127; BP diastolic 54–66; PULSE 64–87; RESP 16–18; TEMP 36.2–36.6; O2SAT 95–98
[2022-06-18 08:25] LABS: Basophils Percent Auto 0.5 % (0.2-1.2); Eosinophils Absolute Auto 0.1 K/mm3 (0-0.3); Eosinophils Percent Auto 2.7 % (0-4.4); Hematocrit 40.1 % (42.0-52.0); Hemoglobin 13.6 g/dL (14.0-18.0); Immature Granulocyte Absolute 0.08 K/mm3 (0.00-0.031); Immature Granulocyte Percent A 1.8 % (0-0.5); Lymphocytes Absolute Auto 0.85 K/mm3 (0.9-3.2); Lymphocytes Percent Auto 19.1 % (18.3-44.2); Mean Corpuscular HGB Conc 33.9 g/dl (32-36); Mean Corpuscular Hemoglobin 29.9 pg (26-34); Mean Corpuscular Volume 88.1 fl (80-100); Mean Platelet Volume 11.7 fl (7.4-10.4); Monocytes Absolute Auto 0.6 K/mm3 (0.1-0.6); Monocytes Percent Auto 13.7 % (2.6-8.5); Neutrophils Absolute Auto 2.8 K/mm3 (1.3-6.7); Neutrophils Percent Auto 62.2 % (45.5-73.1); Platelet Count Result 154 k/mm3 (150-375); Red Blood Count 4.55 M/mm3 (4.6-6.20); Red Cell Distribution Width 12.8 % (11.5-14.5); White Blood Count 4.4 K/mm3 (4.5-10.0)
[2022-06-18 08:35] LABS: Lactic Acid Reflex 0.9 mmol/L (0.7-2.0)
[2022-06-18 08:38] LABS: Alanine Aminotransferase 101 U/L (6-50); Albumin Level 3.1 g/dL (3.5-5.1); Alkaline Phosphatase 75 U/L (38-126); Anion Gap 12 mmol/L (8-16); Aspartate Amino Transferase 125 U/L (17-59); Bilirubin,Total 0.5 mg/dL (0.2-1.3); Blood Urea Nitrogen 101 mg/dL (9-20); Calcium 7.9 mg/dL (8.4-10.2); Carbon Dioxide 24 mmol/L (22-30); Chloride 99 mmol/L (98-107); Creatine Kinase 310 U/L (55-170); Estimated CRCL calculation 24 ml/min; Estimated Glomerular Filt Rate 17; Glucose 150 mg/dL (65-110); Magnesium 2.8 mg/dL (1.6-2.3); Phosphorus 5.1 mg/dL (2.5-4.5); Potassium 3.4 mmol/L (3.4-5.0); Sodium 135 mmol/L (137-145)
--- NOTE | 2022-06-18 12:41 | PM.PNNEP ---
Progress Note: A&P Assessment and Plan (1) Acute kidney failure: Qualifiers: Acute renal failure type: unspecified Qualified Code(s): N17.9 - Acute kidney failure, unspecified Code(s): N17.9 - Acute kidney failure, unspecified Status: Acute Assessment and Plan: The patient has underlying normal kidney function. The patient has acute kidney injury. renal ultrasound is normal. Urine electrolytes are pre renal. UA shows blood, wbcs, rbcs. CK is 4900. Urine under the microscope shows muddy brown casts. most likely dehydration and ATN from pneumonia. His creatinine came down to 3.6 CK is down to a 310 CO2 is up to 24 he is eating and drinking well. Will stop IV fluids. (2) Pneumonia: Qualifiers: Laterality: left Lung location: lower lobe of lung Pneumonia type: due to unspecified organism Qualified Code(s): J18.9 - Pneumonia, unspecified organism Code(s): J18.9 - Pneumonia, unspecified organism Status: Acute Assessment and Plan: the patient has left lower lobe infiltrate. He is getting antibiotics. Blood and sputum cultures were ordered. (3) Hyperglyceridemia: Code(s): E78.1 - Pure hyperglyceridemia Status: Acute Assessment and Plan: The patient is not on any medications for this. (4) HTN (hypertension): Code(s): I10 - Essential (primary) hypertension Status: Acute Assessment and Plan: Blood pressure doing well off all antihypertensives. (5) Metabolic acidosis: Code(s): E87.2 - Acidosis Status: Acute Assessment and Plan: Resolved Subjective Date/time seen: 06/18/22 12:41 Interval history: patient is feeling okay. up in a chair. eating fine. no sob. Exam Narrative: WDWN in NAD skin no rash head ncat lungs some crackles at left base.no egophony cor reg no rub or gallop abd BS+ nontender and soft ext no edema Objective Data Vital Signs Vital Signs: Vital Signs - 24 hr 06/17/22 15:00 06/17/22 16:00 06/17/22 20:00 Temperature 35.8 C L Pulse Rate 70 69 Respiratory Rate 16 Blood Pressure 114/64 Pulse Oximetry 95 Oxygen Delivery Room Air 06/17/22 22:00 06/17/22 20:00 06/18/22 04:00 Temperature 36.2 C L Pulse Rate 67 74 64 Respiratory Rate 16 Blood Pressure 118/70 Pulse Oximetry 96 Oxygen Delivery 06/18/22 06:00 06/18/22 08:00 06/18/22 12:00 Temperature 36.4 C L Pulse Rate 70 72 80 Respiratory Rate 18 Blood Pressure 127/66 Pulse Oximetry 97 Oxygen Delivery Intake/Output Intake/Output: Intake & Output 06/15/22 06/16/22 06/17/22 06/18/22 23:59 23:59 23:59 23:59 Intake Total 3162 2280 720 Output Total 530 1050 3900 1250 Balance 2632 1230 -3180 -1250 Meds/Results Medications: Active Medications Generic Name Dose Route Start Last Admin Trade Name Freq PRN Reason Stop Dose Admin Ceftriaxone Sodium/Dextrose 1 gm in 50 mls @ 100 mls/hr 06/15/22 21:00 06/17/22 20:34 Rocephin 1 Gm/D5w 50 Ml IVPB 100 mls/hr HS HIRAL Administration Azithromycin 500 mg in 250 mls @ 250 mls/hr 06/15/22 21:00 06/17/22 21:52 Zithromax IVPB 250 mls/hr HS HIRAL Administration Sodium Bicarbonate 100 meq/ 1,100 mls @ 50 mls/hr 06/15/22 14:00 06/16/22 14:04 Sterile Water IV CONT 50 mls/hr .Q22H HIRAL Administration Radiology Results: ITS Impressions Chest X-Ray 06/14/22 19:08 IMPRESSION: Left lower lobe pneumonia. Renal Ultrasound 06/15/22 08:54 IMPRESSION: 1. Normal kidneys. No hydronephrosis. Labs Labs: Laboratory Results - last 24 hr 06/18/22 06/18/22 06/18/22 07:47 07:47 07:48 WBC 4.4 L RBC 4.55 L Hgb 13.6 L Hct 40.1 L MCV 88.1 MCH 29.9 MCHC 33.9 RDW 12.8 Plt Count 154 MPV 11.7 H Immature Gran % (Auto) 1.8 H Neut % (Auto) 62.2 Lymph % (Auto) 19.1 [place] % (Auto) 1
--- NOTE | 2022-06-18 15:03 | P.PNIM_ITS ---
Progress Note: A&P Assessment and Plan (1) Rhabdomyolysis: Code(s): M62.82 - Rhabdomyolysis Status: Acute Assessment and Plan: * CK further Decreased today to 310 * Continue IV fluids As ordered by Nephrology of sodium bicarb 100 mil equivalents in sterile water at 50 mL/hour. * Trend urine output * Trend labs * Nephrology on the case * Trend CK * Dehydration likely secondary to PNA. (2) Acute kidney failure: Qualifiers: Acute renal failure type: unspecified Qualified Code(s): N17.9 - Acute kidney failure, unspecified Code(s): N17.9 - Acute kidney failure, unspecified Status: Acute Assessment and Plan: * BUN/Cr 101/3.6, intervally improved. * Baseline appears to be 1.0 * Seems to be related to dehydration * Continuous fluids changed to bicarbonate at 50ml/hr * Nephrology Managing * Continue to trend labs, concern for uremia * Kidney ultrasound showed normal kidneys (3) Pneumonia: Qualifiers: Laterality: left Lung location: lower lobe of lung Pneumonia type: due to unspecified organism Qualified Code(s): J18.9 - Pneumonia, unspecified organism Code(s): J18.9 - Pneumonia, unspecified organism Status: Acute Assessment and Plan: * Chest xray shows left lower lobe pneumonia * WBC's decreased to 4.9. * Continue IV antibiotics Rocephin and Zithromax. * Trend labs And vital signs * Trend chest xray * Sputum culture pending * Blood cultures NGTD * Adjust antibiotics to culture results preliminary blood cultures are negative as and is preliminary sputum sample. Urine culture is still pending. * Pneumococcal and Legionella are currently pending. (4) Transaminitis: Code(s): R74.01 - Elevation of levels of liver transaminase levels Status: Acute Assessment and Plan: * AST/ALT increased further today to 125/101 from 117/81 yesterday. * Hep panel Resulted and is negative. * Continue to trend * Consider RUQ ultrasound if Acute worsening (5) HTN (hypertension): Code(s): I10 - Essential (primary) hypertension Status: Acute Assessment and Plan: * BP is stable * Hold losartan * Continue to trend BP * Adjust therapy as indicated (6) Hyperlipidemia: Code(s): E78.5 - Hyperlipidemia, unspecified Status: Acute Assessment and Plan: * No medicated * Lipid panel Cholesterol 93, Triglycerides 253, LDL 93, HDL 10 * Will hold on starting any medications since liver enzymes are slightly elevated (7) Metabolic acidosis: Code(s): E87.2 - Acidosis Status: Acute Assessment and Plan: * ABG is metabolic acidosis * Bicarb on board * Supplement oxygen wean to maintain saturation >90% * Probably related to the kidney failure * Continue to trend labs * nephrology managing along with medicine Time Spent With Patient Time with patient: 15 - 25 minutes Subjective Date/time seen: 06/18/22 0834 Pt. was examined at the bedside today in interval assessment. He reports that he is feeling better and he is anxious to go home. He has no pain and he has no dyspnea. No new complaints today. He is being followed and managed also by Nephrology. Review of Systems Review of Systems: All systems reviewed & are unremarkable except as noted in HPI and below Exam Const: General: comfortable Other: Morbidly obese male HENMT: General nose exam: No
--- NOTE | 2022-06-18 15:03 | PM.IMPN ---
Progress Note: A&P Assessment and Plan (1) Rhabdomyolysis: Code(s): M62.82 - Rhabdomyolysis Status: Acute Assessment and Plan: CK further Decreased today to 310 Continue IV fluids As ordered by Nephrology of sodium bicarb 100 mil equivalents in sterile water at 50 mL/hour. Trend urine output Trend labs Nephrology on the case Trend CK Dehydration likely secondary to PNA. (2) Acute kidney failure: Qualifiers: Acute renal failure type: unspecified Qualified Code(s): N17.9 - Acute kidney failure, unspecified Code(s): N17.9 - Acute kidney failure, unspecified Status: Acute Assessment and Plan: BUN/Cr 101/3.6, intervally improved. Baseline appears to be 1.0 Seems to be related to dehydration Continuous fluids changed to bicarbonate at 50ml/hr Nephrology Managing Continue to trend labs, concern for uremia Kidney ultrasound showed normal kidneys (3) Pneumonia: Qualifiers: Laterality: left Lung location: lower lobe of lung Pneumonia type: due to unspecified organism Qualified Code(s): J18.9 - Pneumonia, unspecified organism Code(s): J18.9 - Pneumonia, unspecified organism Status: Acute Assessment and Plan: Chest xray shows left lower lobe pneumonia WBC's decreased to 4.9. Continue IV antibiotics Rocephin and Zithromax. Trend labs And vital signs Trend chest xray Sputum culture pending Blood cultures NGTD Adjust antibiotics to culture results preliminary blood cultures are negative as and is preliminary sputum sample. Urine culture is still pending. Pneumococcal and Legionella are currently pending. (4) Transaminitis: Code(s): R74.01 - Elevation of levels of liver transaminase levels Status: Acute Assessment and Plan: AST/ALT increased further today to 125/101 from 117/81 yesterday. Hep panel Resulted and is negative. Continue to trend Consider RUQ ultrasound if Acute worsening (5) HTN (hypertension): Code(s): I10 - Essential (primary) hypertension Status: Acute Assessment and Plan: BP is stable Hold losartan Continue to trend BP Adjust therapy as indicated (6) Hyperlipidemia: Code(s): E78.5 - Hyperlipidemia, unspecified Status: Acute Assessment and Plan: No medicated Lipid panel Cholesterol 93, Triglycerides 253, LDL 93, HDL 10 Will hold on starting any medications since liver enzymes are slightly elevated (7) Metabolic acidosis: Code(s): E87.2 - Acidosis Status: Acute Assessment and Plan: ABG is metabolic acidosis Bicarb on board Supplement oxygen wean to maintain saturation >90% Probably related to the kidney failure Continue to trend labs nephrology managing along with medicine Time Spent With Patient Time with patient: 15 - 25 minutes Subjective Date/time seen: 06/18/22 0834 Pt. was examined at the bedside today in interval assessment. He reports that he is feeling better and he is anxious to go home. He has no pain and he has no dyspnea. No new complaints today. He is being followed and managed also by Nephrology. Review of Systems Review of Systems: All systems reviewed & are unremarkable except as noted in HPI and below Exam Const: General: comfortable Other: Morbidly obese male HENMT: General nose exam: Normal nares present Mouth: Yes moist mucous membranes Eyes: General: appearance normal, both eyes and all related structures Sclera: sclerae normal Pupils: Equal, round and reactive pupils present EOM: EOMs intact bilaterally Neck: Neck: supple and no JVD Lymphatic: lymphadenopathy not noted Resp: Effort & Inspection: normal respiratory effort Auscultation: crackles on the left at the base Cardio: Rate: regular rate Rhythm: regular rhythm Heart sounds: no gallops, no murmurs and no rubs GI: Inspection: non-distended GI Palp: Yes Soft t
[2022-06-18 15:13] LABS: Pneumococcal Antigen Urine Not Detected (Not Detected)
[2022-06-18 16:20] LABS: Osmolality, Urine 352 mOsm/kg (50-1200)
[2022-06-19] VITALS (10 sets, daily range): BP systolic 121–135; BP diastolic 59–67; PULSE 70–101; RESP 18–20; TEMP 36.4–36.7; O2SAT 96
[2022-06-19 05:27] LABS: Basophils Percent Auto 0.6 % (0.2-1.2); Eosinophils Absolute Auto 0.2 K/mm3 (0-0.3); Eosinophils Percent Auto 3.6 % (0-4.4); Hematocrit 37.8 % (42.0-52.0); Hemoglobin 13.1 g/dL (14.0-18.0); Immature Granulocyte Absolute 0.08 K/mm3 (0.00-0.031); Immature Granulocyte Percent A 1.5 % (0-0.5); Lymphocytes Absolute Auto 1.18 K/mm3 (0.9-3.2); Lymphocytes Percent Auto 22.6 % (18.3-44.2); Mean Corpuscular HGB Conc 34.7 g/dl (32-36); Mean Corpuscular Hemoglobin 30.1 pg (26-34); Mean Corpuscular Volume 86.9 fl (80-100); Mean Platelet Volume 11.4 fl (7.4-10.4); Monocytes Absolute Auto 0.8 K/mm3 (0.1-0.6); Monocytes Percent Auto 15.2 % (2.6-8.5); Neutrophils Absolute Auto 2.9 K/mm3 (1.3-6.7); Neutrophils Percent Auto 56.5 % (45.5-73.1); Platelet Count Result 168 k/mm3 (150-375); Red Blood Count 4.35 M/mm3 (4.6-6.20); Red Cell Distribution Width 12.3 % (11.5-14.5); White Blood Count 5.2 K/mm3 (4.5-10.0)
[2022-06-19 05:46] LABS: Alanine Aminotransferase 99 U/L (6-50); Alkaline Phosphatase 77 U/L (38-126); Anion Gap 11 mmol/L (8-16); Aspartate Amino Transferase 98 U/L (17-59); Bilirubin,Total 0.4 mg/dL (0.2-1.3); Blood Urea Nitrogen 85 mg/dL (9-20); Calcium 7.6 mg/dL (8.4-10.2); Carbon Dioxide 25 mmol/L (22-30); Chloride 102 mmol/L (98-107); Estimated CRCL calculation 33 ml/min; Estimated Glomerular Filt Rate 25; Glucose 118 mg/dL (65-110); Magnesium 2.6 mg/dL (1.6-2.3); Phosphorus 4.5 mg/dL (2.5-4.5); Sodium 138 mmol/L (137-145)
[2022-06-19] MEDS: POTASSIUM CHLORIDE 20 MEQ TABLET 40 MEQ PO (08:14)
--- NOTE | 2022-06-19 12:36 | P.PNNP_ITS ---
Progress Note: A&P Assessment and Plan (1) Acute kidney failure: Qualifiers: Acute renal failure type: unspecified Qualified Code(s): N17.9 - Acute kidney failure, unspecified Code(s): N17.9 - Acute kidney failure, unspecified Status: Acute Assessment and Plan: * likely due to volume depletion in combination with ATN from pneumonia worsened by continues use of ARB therapy prior to admission * evaluation to date: * renal ultrasound without obstruction * urine electrolytes are pre renal * UA with with blood, wbcs, rbcs * CK elevated at 4900 * urine sediment with muddy brown casts * creatinine continues to improve with good urine output * appears to be eating and drinking well * off IVFs * follow trend of repeat labs and UOP (2) Pneumonia: Qualifiers: Laterality: left Lung location: lower lobe of lung Pneumonia type: due to unspecified organism Qualified Code(s): J18.9 - Pneumonia, unspecified organism Code(s): J18.9 - Pneumonia, unspecified organism Status: Acute Assessment and Plan: * left lower lobe infiltrate as noted by admission imaging * on antibiotics * culture data noted (3) Metabolic acidosis: Code(s): E87.2 - Acidosis Status: Resolved Assessment and Plan: * resolved * due to renal failure (4) HTN (hypertension): Code(s): I10 - Essential (primary) hypertension Status: Chronic Assessment and Plan: * reasonable control at this time * follow trend of hemodynamics (5) Hypokalemia: Code(s): E87.6 - Hypokalemia Status: Resolved Assessment and Plan: * replaced earlier today * follow trend Will continue to follow. Subjective Date/time seen: 06/19/22 12:36 Chart reviewed -- assuming care from Dr. Stafford; appears to be doing quite well at the time of my visit; breathing/respiratory status is slowly improving as is renal function; no apparent distress voiced; no other issues/events overnight or earlier this morning. Exam Narrative: General: WD/WN male in NAD Heart: normal S1 and S2; no rub Lungs: diminished at left base but otherwise clear Abdomen: soft, nontender, nondistended, positive bowel sounds Extremities: no cyanosis or clubbing; no edema Skin: warm and dry Objective Data Vital Signs Vital Signs: Vital Signs Temp Pulse Resp BP Pulse Ox O2 Del Method 06/19/22 12:00 101 H 06/19/22 08:00 76 06/19/22 08:14 72 20 96 Room Air 06/19/22 04:39 36.4 C 72 20 121/60 96 06/19/22 04:00 82 06/19/22 00:00 70 06/18/22 20:00 86 06/18/22 20:00 87 18 98 Room Air 06/18/22 19:22 36.6 C 87 18 119/54 L 98 Intake/Output Intake/Output: Intake & Output 06/16/22 06/17/22 06/18/22 06/19/22 23:59 23:59 23:59 23:59 Intake Total 2280 1020 540 360 Output Total 1050 3900 2650 1650 Balance 7040 -4211 -2967 -1660 Meds/Results Medications: Active Medications Generic Name Dose Route Start Last Admin Trade Name Freq PRN Reason Stop Dose Admin Cefdinir 300 mg 06/20/22 09:00 Cefdinir 300 Mg Capsule PO 06/23/22 21:01
--- NOTE | 2022-06-19 12:36 | PM.PNNEP ---
Progress Note: A&P Assessment and Plan (1) Acute kidney failure: Qualifiers: Acute renal failure type: unspecified Qualified Code(s): N17.9 - Acute kidney failure, unspecified Code(s): N17.9 - Acute kidney failure, unspecified Status: Acute Assessment and Plan: likely due to volume depletion in combination with ATN from pneumonia worsened by continues use of ARB therapy prior to admission evaluation to date: renal ultrasound without obstruction urine electrolytes are pre renal UA with with blood, wbcs, rbcs CK elevated at 4900 urine sediment with muddy brown casts creatinine continues to improve with good urine output appears to be eating and drinking well off IVFs follow trend of repeat labs and UOP (2) Pneumonia: Qualifiers: Laterality: left Lung location: lower lobe of lung Pneumonia type: due to unspecified organism Qualified Code(s): J18.9 - Pneumonia, unspecified organism Code(s): J18.9 - Pneumonia, unspecified organism Status: Acute Assessment and Plan: left lower lobe infiltrate as noted by admission imaging on antibiotics culture data noted (3) Metabolic acidosis: Code(s): E87.2 - Acidosis Status: Resolved Assessment and Plan: resolved due to renal failure (4) HTN (hypertension): Code(s): I10 - Essential (primary) hypertension Status: Chronic Assessment and Plan: reasonable control at this time follow trend of hemodynamics (5) Hypokalemia: Code(s): E87.6 - Hypokalemia Status: Resolved Assessment and Plan: replaced earlier today follow trend Will continue to follow. Subjective Date/time seen: 06/19/22 12:36 Chart reviewed -- assuming care from Dr. Stafford; appears to be doing quite well at the time of my visit; breathing/respiratory status is slowly improving as is renal function; no apparent distress voiced; no other issues/events overnight or earlier this morning. Exam Narrative: General: WD/WN male in NAD Heart: normal S1 and S2; no rub Lungs: diminished at left base but otherwise clear Abdomen: soft, nontender, nondistended, positive bowel sounds Extremities: no cyanosis or clubbing; no edema Skin: warm and dry Objective Data Vital Signs Vital Signs: Vital Signs Temp Pulse Resp BP Pulse Ox O2 Del Method 06/19/22 12:00 101 H 06/19/22 08:00 76 06/19/22 08:14 72 20 96 Room Air 06/19/22 04:39 36.4 C 72 20 121/60 96 06/19/22 04:00 82 06/19/22 00:00 70 06/18/22 20:00 86 06/18/22 20:00 87 18 98 Room Air 06/18/22 19:22 36.6 C 87 18 119/54 L 98 Intake/Output Intake/Output: Intake & Output 06/16/22 06/17/22 06/18/22 06/19/22 23:59 23:59 23:59 23:59 Intake Total 2280 1020 540 360 Output Total 1050 3900 2650 1650 Balance 4143 -8845 -8736 -6062 Meds/Results Medications: Active Medications Generic Name Dose Route Start Last Admin Trade Name Freq PRN Reason Stop Dose Admin Cefdinir 300 mg 06/20/22 09:00 Cefdinir 300 Mg Capsule PO 06/23/22 21:01 Q12HR HIRAL Ceftriaxone Sodium/Dextrose 1 gm in 50 mls @ 100 mls/hr 06/15/22 21:00 06/18/22 22:00 Rocephin 1 Gm/D5w 50 Ml IVPB 06/19/22 23:59 Infused HS HIRAL Infusion Azithromycin 500 mg in 250 mls @ 250 mls/hr 06/15/22 21:00 06/18/22 21:20 Zithromax IVPB 06/19/22 23:59 Infused HS HIRAL Infusion Radiology Results: ITS Impressions Renal Ultrasound 06/15/22 08:54 IMPRESSION: 1. Normal kidneys. No hydronephrosis. Chest X-Ray 06/19/22 08:21 IMPRESSION: 1. Left basilar airspace opacities with slight improvement, likely pneumonia. Labs Labs: Laboratory Tests 06/19/22 05:11 06/19/22 05:11
--- NOTE | 2022-06-19 12:48 | P.PNIM_ITS ---
Progress Note: A&P Assessment and Plan (1) Rhabdomyolysis: Code(s): M62.82 - Rhabdomyolysis Status: Acute Assessment and Plan: * Continue IV fluids As ordered by Nephrology of sodium bicarb 100 mil equivalents in sterile water at 50 mL/hour. * Trend urine output * Trend labs * Nephrology on the case * Dehydration likely secondary to PNA. (2) Acute kidney failure: Qualifiers: Acute renal failure type: unspecified Qualified Code(s): N17.9 - Acute kidney failure, unspecified Code(s): N17.9 - Acute kidney failure, unspecified Status: Acute Assessment and Plan: * BUN/Cr 85/2.6, intervally improved. * Baseline appears to be 1.0 * Seems to be related to dehydration * Continuous fluids changed to bicarbonate at 50ml/hr * Nephrology Managing * Continue to trend labs, concern for uremia * Kidney ultrasound showed normal kidneys (3) Pneumonia: Qualifiers: Laterality: left Lung location: lower lobe of lung Pneumonia type: due to unspecified organism Qualified Code(s): J18.9 - Pneumonia, unspecified organism Code(s): J18.9 - Pneumonia, unspecified organism Status: Acute Assessment and Plan: * Chest xray shows left lower lobe pneumonia, repeated today shows interval improvement in the PNA. * WBC's normal * Not meeting sepsis criteria. * Continue IV antibiotics Rocephin and Zithromax. * Trend labs And vital signs * Sputum culture negative * Blood cultures NGTD * Adjust antibiotics to culture results preliminary blood cultures are negative as and is preliminary sputum sample. Urine culture is still pending. * Pneumococcal Negative and Legionella currently pending. (4) Transaminitis: Code(s): R74.01 - Elevation of levels of liver transaminase levels Status: Acute Assessment and Plan: * AST/ALT increased further today to 98/99 from 125/101 yesterday. * Hep panel Resulted and is negative. * Continue to trend * Consider RUQ ultrasound if Acute worsening (5) HTN (hypertension): Code(s): I10 - Essential (primary) hypertension Status: Acute Assessment and Plan: * BP is stable * Hold losartan * Continue to trend BP * Adjust therapy as indicated (6) Hyperlipidemia: Code(s): E78.5 - Hyperlipidemia, unspecified Status: Acute Assessment and Plan: * No medicated * Lipid panel Cholesterol 93, Triglycerides 253, LDL 93, HDL 10 * Will hold on starting any medications since liver enzymes are slightly elevated (7) Metabolic acidosis: Code(s): E87.2 - Acidosis Status: Acute Assessment and Plan: * ABG is metabolic acidosis * Bicarb on board * Supplement oxygen wean to maintain saturation >90% * Probably related to the kidney failure * Continue to trend labs * nephrology managing along with medicine (8) Hypokalemia: Code(s): E87.6 - Hypokalemia Status: Acute Assessment and Plan: - Potassium was low at 3.0 today. He was given 40 mEq supplemental. Time Spent With Patient Time with patient: 15 - 25 minutes Subjective Date/time seen: 06/19/22 1125 Pt. was examined at the bedside and has no complaints this AM. He states that he feels better overall and that his breathing is improved. His renal function is further improved today and his repeat CXR shows interval improvement in the appearance of his PNA. Overall he appears that his metabolic status has greatly improved and he is approaching baseline.
--- NOTE | 2022-06-19 12:48 | PM.IMPN ---
Progress Note: A&P Assessment and Plan (1) Rhabdomyolysis: Code(s): M62.82 - Rhabdomyolysis Status: Acute Assessment and Plan: Continue IV fluids As ordered by Nephrology of sodium bicarb 100 mil equivalents in sterile water at 50 mL/hour. Trend urine output Trend labs Nephrology on the case Dehydration likely secondary to PNA. (2) Acute kidney failure: Qualifiers: Acute renal failure type: unspecified Qualified Code(s): N17.9 - Acute kidney failure, unspecified Code(s): N17.9 - Acute kidney failure, unspecified Status: Acute Assessment and Plan: BUN/Cr 85/2.6, intervally improved. Baseline appears to be 1.0 Seems to be related to dehydration Continuous fluids changed to bicarbonate at 50ml/hr Nephrology Managing Continue to trend labs, concern for uremia Kidney ultrasound showed normal kidneys (3) Pneumonia: Qualifiers: Laterality: left Lung location: lower lobe of lung Pneumonia type: due to unspecified organism Qualified Code(s): J18.9 - Pneumonia, unspecified organism Code(s): J18.9 - Pneumonia, unspecified organism Status: Acute Assessment and Plan: Chest xray shows left lower lobe pneumonia, repeated today shows interval improvement in the PNA. WBC's normal Not meeting sepsis criteria. Continue IV antibiotics Rocephin and Zithromax. Trend labs And vital signs Sputum culture negative Blood cultures NGTD Adjust antibiotics to culture results preliminary blood cultures are negative as and is preliminary sputum sample. Urine culture is still pending. Pneumococcal Negative and Legionella currently pending. (4) Transaminitis: Code(s): R74.01 - Elevation of levels of liver transaminase levels Status: Acute Assessment and Plan: AST/ALT increased further today to 98/99 from 125/101 yesterday. Hep panel Resulted and is negative. Continue to trend Consider RUQ ultrasound if Acute worsening (5) HTN (hypertension): Code(s): I10 - Essential (primary) hypertension Status: Acute Assessment and Plan: BP is stable Hold losartan Continue to trend BP Adjust therapy as indicated (6) Hyperlipidemia: Code(s): E78.5 - Hyperlipidemia, unspecified Status: Acute Assessment and Plan: No medicated Lipid panel Cholesterol 93, Triglycerides 253, LDL 93, HDL 10 Will hold on starting any medications since liver enzymes are slightly elevated (7) Metabolic acidosis: Code(s): E87.2 - Acidosis Status: Acute Assessment and Plan: ABG is metabolic acidosis Bicarb on board Supplement oxygen wean to maintain saturation >90% Probably related to the kidney failure Continue to trend labs nephrology managing along with medicine (8) Hypokalemia: Code(s): E87.6 - Hypokalemia Status: Acute Assessment and Plan: - Potassium was low at 3.0 today. He was given 40 mEq supplemental. Time Spent With Patient Time with patient: 15 - 25 minutes Subjective Date/time seen: 06/19/22 1125 Pt. was examined at the bedside and has no complaints this AM. He states that he feels better overall and that his breathing is improved. His renal function is further improved today and his repeat CXR shows interval improvement in the appearance of his PNA. Overall he appears that his metabolic status has greatly improved and he is approaching baseline. He has no new complaints today of CP, dyspnea, N/V/D/urinary complaints of burning, urgency, any fatigue or weakness and no headache, dizziness, or lightheadedness. Review of Systems Review of Systems: All systems reviewed & are unremarkable except as noted in HPI and below Exam Const: General: comfortable Other: Morbidly obese male HENMT: General nose exam: Normal nares present Mouth: Yes moist mucous membranes Eyes: General: appearance normal, both eyes and a
[2022-06-20] VITALS: PULSE 70
[2022-06-20 04:00] VITALS: PULSE 66
[2022-06-20 05:29] LABS: Basophils Percent Auto 0.6 % (0.2-1.2); Eosinophils Absolute Auto 0.3 K/mm3 (0-0.3); Eosinophils Percent Auto 4.8 % (0-4.4); Hematocrit 41.6 % (42.0-52.0); Hemoglobin 13.8 g/dL (14.0-18.0); Immature Granulocyte Absolute 0.13 K/mm3 (0.00-0.031); Immature Granulocyte Percent A 2.4 % (0-0.5); Lymphocytes Absolute Auto 1.28 K/mm3 (0.9-3.2); Lymphocytes Percent Auto 23.5 % (18.3-44.2); Mean Corpuscular HGB Conc 33.2 g/dl (32-36); Mean Corpuscular Hemoglobin 29.9 pg (26-34); Mean Platelet Volume 10.8 fl (7.4-10.4); Monocytes Absolute Auto 0.7 K/mm3 (0.1-0.6); Monocytes Percent Auto 12.1 % (2.6-8.5); Neutrophils Absolute Auto 3.1 K/mm3 (1.3-6.7); Neutrophils Percent Auto 56.6 % (45.5-73.1); Platelet Count Result 207 k/mm3 (150-375); Red Blood Count 4.62 M/mm3 (4.6-6.20); Red Cell Distribution Width 12.6 % (11.5-14.5); White Blood Count 5.5 K/mm3 (4.5-10.0)
[2022-06-20 05:49] LABS: Alanine Aminotransferase 113 U/L (6-50); Albumin Level 3.2 g/dL (3.5-5.1); Alkaline Phosphatase 79 U/L (38-126); Anion Gap 13 mmol/L (8-16); Aspartate Amino Transferase 99 U/L (17-59); Bilirubin,Total 0.6 mg/dL (0.2-1.3); Blood Urea Nitrogen 54 mg/dL (9-20); Calcium 7.8 mg/dL (8.4-10.2); Carbon Dioxide 24 mmol/L (22-30); Chloride 104 mmol/L (98-107); Creatine Kinase 97 U/L (55-170); Estimated CRCL calculation 47 ml/min; Estimated Glomerular Filt Rate 38; Glucose 120 mg/dL (65-110); Magnesium 2.4 mg/dL (1.6-2.3); Potassium 3.7 mmol/L (3.4-5.0); Sodium 141 mmol/L (137-145)
[2022-06-20 06:00] VITALS: BP 140/70; PULSE 75; RESP 16; TEMP 36.8; O2SAT 96
[2022-06-20 08:00] VITALS: PULSE 64
[2022-06-20] MEDS: CEFDINIR 300 MG CAPSULE PO (09:05)
--- NOTE | 2022-06-20 09:24 | PM.PNNEP ---
Progress Note: A&P Assessment and Plan (1) Acute kidney failure: Qualifiers: Acute renal failure type: unspecified Qualified Code(s): N17.9 - Acute kidney failure, unspecified Code(s): N17.9 - Acute kidney failure, unspecified Status: Acute Assessment and Plan: resolving likely due to volume depletion in combination with ATN from pneumonia worsened by continues use of ARB therapy prior to admission evaluation to date: renal ultrasound without obstruction urine electrolytes are pre renal UA with with blood, wbcs, rbcs CK elevated at 4900 urine sediment with muddy brown casts creatinine continues to improve with good urine output appears to be eating and drinking well off IVFs follow trend of repeat labs and UOP (2) Pneumonia: Qualifiers: Laterality: left Lung location: lower lobe of lung Pneumonia type: due to unspecified organism Qualified Code(s): J18.9 - Pneumonia, unspecified organism Code(s): J18.9 - Pneumonia, unspecified organism Status: Acute Assessment and Plan: left lower lobe infiltrate as noted by admission imaging on antibiotics culture data noted (3) Metabolic acidosis: Code(s): E87.2 - Acidosis Status: Resolved Assessment and Plan: resolved due to renal failure (4) HTN (hypertension): Code(s): I10 - Essential (primary) hypertension Status: Chronic Assessment and Plan: reasonable control at this time follow trend of hemodynamics (5) Hypokalemia: Code(s): E87.6 - Hypokalemia Status: Resolved Assessment and Plan: stable follow trend Not opposed to discharge from renal perspective - would have him follow-up with PCP along with repeat labs in 2 weeks to ensure ongoing improvement in renal function. Will continue to follow. Subjective Date/time seen: 06/20/22 09:24 Continues to make slow and steady improvement -- continues to feel well and renal function continues to improve with supportive therapy; no other acute complaints voiced at this time; no events overnight or earlier this AM; anxious for discharge. Exam Narrative: General: WD/WN male in NAD Heart: normal S1 and S2; no rub Lungs: diminished at left base but otherwise clear Abdomen: soft, nontender, nondistended, positive bowel sounds Extremities: no cyanosis or clubbing; no edema Skin: warm and intact Objective Data Vital Signs Vital Signs: Vital Signs Temp Pulse Resp BP Pulse Ox O2 Del Method 06/20/22 08:00 Room Air 09/13/22 06:00 36.8 C 75 16 140/70 96 06/20/22 04:00 66 06/20/22 00:00 70 06/19/22 22:00 36.7 C 97 18 135/67 96 06/19/22 20:00 74 06/19/22 16:00 79 06/19/22 14:00 36.7 C 86 18 121/59 L 96 06/19/22 12:00 101 H Intake/Output Intake/Output: Intake & Output 06/17/22 06/18/22 06/19/22 06/20/22 23:59 23:59 23:59 23:59 Intake Total 1020 540 660 Output Total 3900 2650 1650 300 Balance -2880 -2110 -990 -300 Meds/Results Medications: Active Medications Generic Name Dose Route Start Last Admin Trade Name Freq PRN Reason Stop Dose Admin Cefdinir 300 mg 06/20/22 09:00 06/20/22 09:05 Cefdinir 300 Mg Capsule PO 06/23/22 21:01 300 mg Q12HR HIRAL Administration Radiology Results: ITS Impressions Renal Ultrasound 06/15/22 08:54 IMPRESSION: 1. Normal kidneys. No hydronephrosis. Chest X-Ray 06/19/22 08:21 IMPRESSION: 1. Left basilar airspace opacities with slight improvement, likely pneumonia. Labs Labs: Laboratory Tests 06/20/22 05:14 06/20/22 05:14 Microbiology 06/14/22 20:00 Blood Blood Culture - Final 06/14/22 19:59 Blood Blood Culture - Final
--- NOTE | 2022-06-20 09:24 | P.PNNP_ITS ---
Progress Note: A&P Assessment and Plan (1) Acute kidney failure: Qualifiers: Acute renal failure type: unspecified Qualified Code(s): N17.9 - Acute kidney failure, unspecified Code(s): N17.9 - Acute kidney failure, unspecified Status: Acute Assessment and Plan: * resolving * likely due to volume depletion in combination with ATN from pneumonia worsened by continues use of ARB therapy prior to admission * evaluation to date: * renal ultrasound without obstruction * urine electrolytes are pre renal * UA with with blood, wbcs, rbcs * CK elevated at 4900 * urine sediment with muddy brown casts * creatinine continues to improve with good urine output * appears to be eating and drinking well * off IVFs * follow trend of repeat labs and UOP (2) Pneumonia: Qualifiers: Laterality: left Lung location: lower lobe of lung Pneumonia type: due to unspecified organism Qualified Code(s): J18.9 - Pneumonia, unspecified organism Code(s): J18.9 - Pneumonia, unspecified organism Status: Acute Assessment and Plan: * left lower lobe infiltrate as noted by admission imaging * on antibiotics * culture data noted (3) Metabolic acidosis: Code(s): E87.2 - Acidosis Status: Resolved Assessment and Plan: * resolved * due to renal failure (4) HTN (hypertension): Code(s): I10 - Essential (primary) hypertension Status: Chronic Assessment and Plan: * reasonable control at this time * follow trend of hemodynamics (5) Hypokalemia: Code(s): E87.6 - Hypokalemia Status: Resolved Assessment and Plan: * stable * follow trend Not opposed to discharge from renal perspective - would have him follow-up with PCP along with repeat labs in 2 weeks to ensure ongoing improvement in renal function. Will continue to follow. Subjective Date/time seen: 06/20/22 09:24 Continues to make slow and steady improvement -- continues to feel well and renal function continues to improve with supportive therapy; no other acute complaints voiced at this time; no events overnight or earlier this AM; anxious for discharge. Exam Narrative: General: WD/WN male in NAD Heart: normal S1 and S2; no rub Lungs: diminished at left base but otherwise clear Abdomen: soft, nontender, nondistended, positive bowel sounds Extremities: no cyanosis or clubbing; no edema Skin: warm and intact Objective Data Vital Signs Vital Signs: Vital Signs Temp Pulse Resp BP Pulse Ox O2 Del Method 06/20/22 08:00 Room Air 06/20/22 06:00 36.8 C 75 16 140/70 96 06/20/22 04:00 66 06/20/22 00:00 70 06/19/22 22:00 36.7 C 97 18 135/67 96 06/19/22 20:00 74 06/19/22 16:00 79 06/19/22 14:00 36.7 C 86 18 121/59 L 96 06/19/22 12:00 101 H Intake/Output Intake/Output: Intake & Output 06/17/22 06/18/22 06/19/22 06/20/22 23:59 23:59 23:59 23:59 Intake Total 1020 540 660 Output Total 3900 2650 1650 300 Balance -2880 -2110 -990 -300 Meds/Results Medications: Active Medic
--- NOTE | 2022-06-20 09:34 | P.DS_ITS ---
DS: Admitting Diagnosis Discharge Date 06/20/22 Admitting Diagnosis Pneumonia, acute kidney failure DS: Discharge Diagnosis Discharge Diagnosis (1) Rhabdomyolysis: Code(s): M62.82 - Rhabdomyolysis Status: Acute Assessment and Plan: * IV fluids discontinued at this time. * UOP has been adequate. * CK has trended down to normal today at 97. * Nephrology evaluated and OK with discharge. Will want repeat Metabolic panel in 2 weeks. * Dehydration and acute renal failure likely secondary to PNA. (2) Acute kidney failure: Qualifiers: Acute renal failure type: unspecified Qualified Code(s): N17.9 - Acute kidney failure, unspecified Code(s): N17.9 - Acute kidney failure, unspecified Status: Acute Assessment and Plan: * Renal function has drastically improved and is at 1.8/54 today. * Baseline appears to be 1.0 * Seems to be related to dehydration and infection of PNA. * Fluids have been stopped. * UOP has been more than adequate. * Nephrology clears for discharge and does not need any follow up unless repeat labs in two weeks are abnormal. * Kidney ultrasound showed normal kidneys (3) Pneumonia: Qualifiers: Laterality: left Lung location: lower lobe of lung Pneumonia type: due to unspecified organism Qualified Code(s): J18.9 - Pneumonia, unspecified organism Code(s): J18.9 - Pneumonia, unspecified organism Status: Acute Assessment and Plan: * Chest xray shows left lower lobe pneumonia, repeated CXR shows interval improvement in the PNA. * WBC's normal * Not meeting sepsis criteria. * IV abx discontinued today and he is appropriate for discharge on Cefdinir for 5 days. * Trend labs And vital signs * Sputum culture negative * Blood cultures negative * Physical exam matches objective data findings. (4) Transaminitis: Code(s): R74.01 - Elevation of levels of liver transaminase levels Status: Acute Assessment and Plan: * AST/ALT today to 99/113 today. Pt. will need to follow up with his PCP as an outpatient. * Bilirubin is normal. * Hep panel Resulted and is negative. (5) HTN (hypertension): Code(s): I10 - Essential (primary) hypertension Status: Chronic Assessment and Plan: * BP is stable * Hold Losartan on discharge secondary to renal function. Once at baseline, PCP may opt to restart it, however, the patient's blood pressure has been stable here without it. (6) Hyperlipidemia: Code(s): E78.5 - Hyperlipidemia, unspecified Status: Acute Assessment and Plan: * No medicated * Lipid panel Cholesterol 93, Triglycerides 253, LDL 93, HDL 10 * Will hold on starting any medications since liver enzymes are slightly elevated. PCP will need to address at a later time. (7) Metabolic acidosis: Code(s): E87.2 - Acidosis Status: Resolved Assessment and Plan: * ABG initially demonstrated metabolic acidosis * Pt. received bicarb. * No supplemental oxygen is required for discharge. * Probably related to the kidney failure, now resolved. (8) Hypokalemia: Code(s): E87.6 - Hypokalemia Status: Resolved Assessment and Plan: - Potassium was 3.7 today, resolved. DS: Summary Hospital Course Reason for hospitalization: Acute renal failure Hospital Course: This 66-year-old male patient with significant past medical history of hypertension, dyslipidemia and obesity presented to the emergency ro
--- NOTE | 2022-06-20 09:34 | PM.DS ---
DS: Admitting Diagnosis Discharge Date 06/20/22 Admitting Diagnosis Pneumonia, acute kidney failure DS: Discharge Diagnosis Discharge Diagnosis (1) Rhabdomyolysis: Code(s): M62.82 - Rhabdomyolysis Status: Acute Assessment and Plan: IV fluids discontinued at this time. UOP has been adequate. CK has trended down to normal today at 97. Nephrology evaluated and OK with discharge. Will want repeat Metabolic panel in 2 weeks. Dehydration and acute renal failure likely secondary to PNA. (2) Acute kidney failure: Qualifiers: Acute renal failure type: unspecified Qualified Code(s): N17.9 - Acute kidney failure, unspecified Code(s): N17.9 - Acute kidney failure, unspecified Status: Acute Assessment and Plan: Renal function has drastically improved and is at 1.8/54 today. Baseline appears to be 1.0 Seems to be related to dehydration and infection of PNA. Fluids have been stopped. UOP has been more than adequate. Nephrology clears for discharge and does not need any follow up unless repeat labs in two weeks are abnormal. Kidney ultrasound showed normal kidneys (3) Pneumonia: Qualifiers: Laterality: left Lung location: lower lobe of lung Pneumonia type: due to unspecified organism Qualified Code(s): J18.9 - Pneumonia, unspecified organism Code(s): J18.9 - Pneumonia, unspecified organism Status: Acute Assessment and Plan: Chest xray shows left lower lobe pneumonia, repeated CXR shows interval improvement in the PNA. WBC's normal Not meeting sepsis criteria. IV abx discontinued today and he is appropriate for discharge on Cefdinir for 5 days. Trend labs And vital signs Sputum culture negative Blood cultures negative Physical exam matches objective data findings. (4) Transaminitis: Code(s): R74.01 - Elevation of levels of liver transaminase levels Status: Acute Assessment and Plan: AST/ALT today to 99/113 today. Pt. will need to follow up with his PCP as an outpatient. Bilirubin is normal. Hep panel Resulted and is negative. (5) HTN (hypertension): Code(s): I10 - Essential (primary) hypertension Status: Chronic Assessment and Plan: BP is stable Hold Losartan on discharge secondary to renal function. Once at baseline, PCP may opt to restart it, however, the patient's blood pressure has been stable here without it. (6) Hyperlipidemia: Code(s): E78.5 - Hyperlipidemia, unspecified Status: Acute Assessment and Plan: No medicated Lipid panel Cholesterol 93, Triglycerides 253, LDL 93, HDL 10 Will hold on starting any medications since liver enzymes are slightly elevated. PCP will need to address at a later time. (7) Metabolic acidosis: Code(s): E87.2 - Acidosis Status: Resolved Assessment and Plan: ABG initially demonstrated metabolic acidosis Pt. received bicarb. No supplemental oxygen is required for discharge. Probably related to the kidney failure, now resolved. (8) Hypokalemia: Code(s): E87.6 - Hypokalemia Status: Resolved Assessment and Plan: - Potassium was 3.7 today, resolved. DS: Summary Hospital Course Reason for hospitalization: Acute renal failure Hospital Course: This 66-year-old male patient with significant past medical history of hypertension, dyslipidemia and obesity presented to the emergency room on June 15, 2022 with complaints of dyspnea, fatigue, fevers, chills, night sweats, poor appetite, poor oral intake, diarrhea, decreased urine output for approximately 5 days prior to presentation. At the time of of presentation he denied any acute pain or dyspnea, but did endorse having a productive cough. In addition he had dysuria and urgency. Significant labs on admission were a creatinine of 4.2, BUN of 54, sodium of 129, bicarb of 17, chloride of 97. In addition chest x-ray was
[2022-06-20 12:00] VITALS: PULSE 76
[2022-06-21 13:29] LABS: Legionella pneumophila Ag Ur Detected (Not Detected)
== END 2022-06-20 12:15 | disposition home or self-care (01) | DRG 682 ==
LOC: ANHED 20:03 → ANH3MED 21:35
PROVIDERS: Emergency Medicine; Internal Medicine Nephrology; Nurse Practitioner; Physician Assistant; Admitting Provider Internal Medicine; Emergency Provider Emergency Medicine; PCP Family Medicine; Visit Provider Nurse Practitioner Adult Health
DX: N17.0 Acute kidney failure with tubular necrosis (principal); J18.9 Pneumonia, unspecified organism; E87.2 Acidosis; M62.82 Rhabdomyolysis; Z20.822 Contact with and (suspected) exposure to COVID-19; I10 Essential (primary) hypertension; E78.1 Pure hyperglyceridemia; E86.0 Dehydration; E87.6 Hypokalemia; E66.9 Obesity, unspecified; Z68.35 Body mass index [BMI] 35.0-35.9, adult; Z87.891 Personal history of nicotine dependence; Z86.010 Personal history of colon polyps
CPT/HCPCS: 36415; 36600; 71045; 71046; 76775; 80048; 80053; 80061; 80069; 80074; 81001; 82375; 82550; 82570; 82805; 83036; 83050; 83605; 83735; 83935; 84100; 84300; 84540; 85025; 85055; 85610; 85730; 87040; 87070; 87086; 87205; 87449; 87899; 93005; 96361; 96365; 96368; 99285; A9270; C9803; G0378; J0456; J0696; J7030; U0003; U0005

== ENCOUNTER 2022-07-03 08:02 | Outpatient (CLI) | payer MEDICARE, OTHER, SELFPAY ==
--- NOTE | ~2022-07-03 | XR_ITS ---
EXAMINATION: XR chest 2V DATE: 07/03/2022 08:31 INDICATION: Shortness of breath TECHNIQUE: PA and lateral views of the chest are obtained. COMPARISON: 06/19/2022 FINDINGS: There are persistent but decreased airspace opacities of the left lung base. No pleural eff usion or pneumothorax. The cardiomediastinal silhouette is normal. There is mild thoracic spondylosis . IMPRESSION: 1. Continued improvement of left basilar airspace opacities, consistent with resolving pneumonia. Reviewed, dictated and finalized at location A. IMPRESSION: 1. Continued improvement of left basilar airspace opacities, consistent with re solving pneumonia.
[2022-07-03 08:27] LABS: Basophils Absolute Auto 0.1 K/mm3 (0.0-0.1); Basophils Percent Auto 2.5 % (0.2-1.2); Eosinophils Absolute Auto 0.2 K/mm3 (0-0.3); Eosinophils Percent Auto 3.2 % (0-4.4); Hematocrit 40.8 % (42.0-52.0); Hemoglobin 13.4 g/dL (14.0-18.0); Immature Granulocyte Absolute 0.01 K/mm3 (0.00-0.031); Immature Granulocyte Percent A 0.2 % (0-0.5); Lymphocytes Absolute Auto 2.28 K/mm3 (0.9-3.2); Lymphocytes Percent Auto 40.1 % (18.3-44.2); Mean Corpuscular HGB Conc 32.8 g/dl (32-36); Mean Corpuscular Hemoglobin 30.2 pg (26-34); Mean Corpuscular Volume 91.9 fl (80-100); Mean Platelet Volume 10.7 fl (7.4-10.4); Monocytes Absolute Auto 0.5 K/mm3 (0.1-0.6); Monocytes Percent Auto 8.1 % (2.6-8.5); Neutrophils Absolute Auto 2.6 K/mm3 (1.3-6.7); Neutrophils Percent Auto 45.9 % (45.5-73.1); Platelet Count Result 217 k/mm3 (150-375); Red Blood Count 4.44 M/mm3 (4.6-6.20); Red Cell Distribution Width 12.5 % (11.5-14.5); White Blood Count 5.7 K/mm3 (4.5-10.0)
[2022-07-03 08:36] LABS: Alanine Aminotransferase 37 U/L (6-50); Alkaline Phosphatase 90 U/L (38-126); Anion Gap 13 mmol/L (8-16); Aspartate Amino Transferase 28 U/L (17-59); Bilirubin,Total 0.7 mg/dL (0.2-1.3); Blood Urea Nitrogen 18 mg/dL (9-20); Carbon Dioxide 25 mmol/L (22-30); Chloride 103 mmol/L (98-107); Estimated Glomerular Filt Rate 51; Glucose 115 mg/dL (65-110); Potassium 3.7 mmol/L (3.4-5.0); Sodium 141 mmol/L (137-145)
== END 2022-07-03 08:03 | disposition home or self-care (01) ==
PROVIDERS: PCP Family Medicine; Visit Provider Physician Assistant
DX: J18.9 Pneumonia, unspecified organism (principal); N17.9 Acute kidney failure, unspecified; R74.01 Elevation of levels of liver transaminase levels
CPT/HCPCS: 36415; 71046; 80053; 85025

== ENCOUNTER 2022-08-17 15:10 | Outpatient (CLI) | payer MEDICARE, OTHER, SELFPAY ==
[2022-08-17 16:37] LABS: Hematocrit 43.2 % (42.0-52.0); Hemoglobin 14.8 g/dL (14.0-18.0); Mean Corpuscular HGB Conc 34.3 g/dl (32-36); Mean Corpuscular Volume 87.4 fl (80-100); Mean Platelet Volume 11.1 fl (7.4-10.4); Platelet Count Result 223 k/mm3 (150-375); Red Blood Count 4.94 M/mm3 (4.6-6.20); Red Cell Distribution Width 12.9 % (11.5-14.5); White Blood Count 5.5 K/mm3 (4.5-10.0)
[2022-08-17 16:49] LABS: Alanine Aminotransferase 39 U/L (6-50); Albumin Level 4.5 g/dL (3.5-5.1); Alkaline Phosphatase 89 U/L (38-126); Anion Gap 14 mmol/L (8-16); Aspartate Amino Transferase 37 U/L (17-59); Bilirubin,Total 0.7 mg/dL (0.2-1.3); Blood Urea Nitrogen 19 mg/dL (9-20); Calcium 9.1 mg/dL (8.4-10.2); Carbon Dioxide 25 mmol/L (22-30); Chloride 102 mmol/L (98-107); Estimated Glomerular Filt Rate > 60; Glucose 116 mg/dL (65-110); Potassium 3.7 mmol/L (3.4-5.0); Sodium 141 mmol/L (137-145)
[2022-08-17 17:51] LABS: Appearance Urine Cloudy (Clear); Bilirubin Urine Negative (Negative); Blood Urine 2+ (Negative); Color Urine Yellow (Yellow); Glucose Urine UA Negative (Negative); Ketones Urine Trace mg/dL (Negative); Leukocyte Esterase Ur 1+ LEU/UL (NEGATIVE); Nitrate Urine Positive (Negative); Protein Urine 2+ mg/dL (Negative); Specific Grav Ur 1.025 (1.001-1.035); Urobilinogen Urine 0.2 mg/dL (<2.0)
[2022-08-17 18:01] LABS: Bacteria Urine 1+ /hpf; Mucus Urine Few /lpf; RBC Urine 21-50 /hpf (0-2); Squamous Epithelial Cell Urine Many /hpf (Few); WBC Urine >75 /hpf (0-3)
[2022-08-17 18:02] LABS: Add Urine Microscopic? YES
== END 2022-08-17 15:11 | disposition home or self-care (01) ==
LOC: ANHLAB 15:13
PROVIDERS: PCP Family Medicine; Referring Provider Nurse Practitioner Family; Visit Provider Physician Assistant
DX: N17.9 Acute kidney failure, unspecified (principal); R42 Dizziness and giddiness; E78.1 Pure hyperglyceridemia; I10 Essential (primary) hypertension; R73.01 Impaired fasting glucose; Z86.010 Personal history of colon polyps
CPT/HCPCS: 36415; 80053; 81001; 85027

== ENCOUNTER 2022-08-28 10:53 | Outpatient (CLI) | payer MEDICARE, OTHER, SELFPAY ==
--- NOTE | ~2022-08-28 | US_ITS ---
EXAMINATION: US carotid duplex BI DATE: 08/28/2022 11:20 INDICATION: Dizziness. Giddiness. TECHNIQUE: Grayscale, color Doppler, and pulsed Doppler images of the cervical carotid arteries were obtained. The degree of vessel stenosis is placed in one of the following categories: normal, <50%, 5 0-69%, >=70% but less than near-occlusion, near-occlusion, or total occlusion. Note that percent sten osis relative to normal distal artery lumen diameter is indirectly measured from velocity measurement s as described by Sukumar, et al. Radiology 2003; 229:340-346. Notes: Normal: Peak systolic velocity <125 centimeters/sec and no plaque <50%. Peak systolic velocity <125 ( EDV <40; ICA/CCA PSV ratio <2.0; used these factors only a tandem lesions or low cardiac output or co ntralateral disease) 50-69 %: PSV 125-230 (EDV 40-100; ratio 2-4) >= 70% but less than near occlusion: PSV greater than 230 (EDV > 100; ratio> 4.0) Near Occlusion: PSV that is variable; markedly narrowed lumen Occlusion: Absent flow on color/spectral Doppler and no lumen on adams scale. COMPARISON: None. FINDINGS: RIGHT: The right common carotid artery (CCA) peak systolic velocity (PSV) is 105 cm/s. The right internal ca rotid artery (ICA) PSV is 118 cm/s. The right ICA end-diastolic velocity (EDV) is 30 cm/s. The right ICA/CCA PSV ratio is 1.1. The external carotid artery (ECA) PSV is 91 cm/s. There is antegrade flow i n the right vertebral artery. LEFT: The left CCA PSV is 142 cm/s. The left ICA PSV is 103 cm/s. The left ICA EDV is 24 cm/s. The left ICA /CCA PSV ratio is 0.7. The ECA PSV is 95 cm/s. There is antegrade flow in the left vertebral artery. IMPRESSION: 1. Less than 50% stenosis in the right internal carotid artery by sonographic criteria. 2. Less than 50% stenosis in the left internal carotid artery by sonographic criteria. Reviewed, dictated and finalized at location B. PERFORMANCE CONSULTANT IMPRESSION: 1. Less than 50% stenosis in the right internal carotid artery by sonographic shila beaulieu. 2. Less than 50% stenosis in the left internal carotid artery by sonographic hallie pulido.
== END 2022-08-28 10:54 | disposition home or self-care (01) ==
PROVIDERS: PCP Family Medicine; Visit Provider Nurse Practitioner Family
DX: R42 Dizziness and giddiness (principal); I65.23 Occlusion and stenosis of bilateral carotid arteries
CPT/HCPCS: 93880

== ENCOUNTER 2022-09-26 01:19 | Day surgery (SDC) | payer MEDICARE, OTHER, SELFPAY ==
[2022-09-22 11:03] VITALS: BMI 33.7
--- NOTE | 2022-09-22 11:17 | PC.NURSE ---
Report to the Outpatient Waiting Room, entrance under the green pavilion located off [facility], at time _0630_ on date _09/26/22_. Planned Procedure Time: _0830_. Time changes happen often and if your time is changed the preop area will call you the afternoon before. - You and your visitor will be asked to self-screen and do not enter if you have any COVID symptoms. - Only one visitor is requested with a max of two and NO children visitors are allowed at this time. - The patient visitor may be requested to leave or wait in car when not with patient due to distancing restrictions. - A mask is optional within the hospital. Patients may have clear liquids (water, carbonated beverages, clear teas, apple juice) until 3 hours prior to surgery (0530 AM) with a maximum of 20 ounces. - No food from midnight until time of surgery - Infants may have breast milk until 4 hours before surgery, infant formula 6 hours prior to surgery. - Children will be allowed to drink immediately following surgery. If applicable, please bring a bottle or sippy cup to assist with drinking. Juice, water, soda, and popsicles are readily available. For infants on formula, please bring formula the day of surgery. Pacifiers are allowed. Take the following medications with a SIP of water the morning of surgery: NONE Medications to discontinue per physician NONE Date to take last dose Please no make-up, nail monegasque, hairspray, perfume, deodorant, or body powder the day of surgery. No jewelry (including any body piercings) or valuables the day of surgery, leave them at home. Please take a shower or bath the night before, or the morning of, surgery with an antibacterial soap. Wear comfortable, loose fitting clothing. Children are encouraged to wear pajamas. - Jewelry must be removed prior to entering the operating room. Rings and piercings that are not removed may be cut off. - The hospital will not accept responsibility for valuables. - Please leave all valuables, including medications, at home the day of surgery. If you are going home after surgery, a licensed garbage collector driver must drive you home. - NO public transportation without another adult if you receive anesthesia. - We recommend that an adult stay with you for 24 hours following discharge. - We also recommend that you do not drive, make important decision, drink alcoholic beverages, or take any drugs that were not prescribed by your health care provider for at least 24 hours after your discharge time. For Pediatric surgeries, we recommend two adults accompany the child home. Follow any additional instructions given to you from your surgeon. If you or anyone in your household have experienced Covid symptoms in the past week, please notify your surgeon or the nurse liaison at the phone number below for possible testing. Telephone instructions given to ____PT and asked if any additional questions and then verbalized understanding. Patient advised to call surgeon office or pre surgery nurse liaison [phone] if any additional questions.
[2022-09-26] VITALS (7 sets, daily range): BP systolic 104–168; BP diastolic 53–87; PULSE 71–90; RESP 12–21; TEMP 36.5–36.7; O2SAT 96–100
--- NOTE | ~2022-09-26 | XR_ITS ---
EXAMINATION: XR fluoroscopy no charge DATE: 09/26/2022 08:58 INDICATION: Cystoscopy and transurethral dilation. Complex catheter placement. TECHNIQUE: 3 fluoroscopic images of the pelvis were obtained during procedure performed by Dr. Reginaldo lutz. Radiologist was not present for the imaging or procedure. The amount of fluoroscopy time used dur ing this procedure was 0.5 minutes. COMPARISON: None. FINDINGS/IMPRESSION: Images demonstrate a wire advanced into the bladder and subsequently placement of a larger diameter l ikely Robertson catheter in the bladder. See procedure note for further detail. Reviewed, dictated and finalized at location L. [employer]
--- NOTE | 2022-09-26 07:28 | PM.IMHP ---
H&P: HPI History of Present Illness Date/Time: 09/26/22 07:28 Chief Complaint: urethral/meatal stricture Narrative: 66 year old male with urethral/meatal stricture after having a catheter placed a few months back. Here for further evaluation and management. Review of Systems Review of Systems: All systems reviewed & are unremarkable except as noted in HPI and below PMFSH Past Medical History Medical History History of adenomatous polyp of colon Hyperglyceridemia Hypertension Metabolic acidosis Obesity Surgical History Surgical History History of intraocular lens implant Family History Family History Mother Kidney disease Other Cancer Social History Social History Smoking packs per day: 1 Smoking cigarettes per day: 20.0 Years smoked: 15 Smoking pack-years: 15.00 Smoking status: Former smoker Tobacco type: cigarettes Second hand tobacco smoke exposure: No Smoking end date: 10/08/94 Alcohol intake: current Drinks per week: 4 Substance use: never Substance use type: does not use Gender identity (if verbalized by the patient): Male Spiritual care concerns: No Meds Home Medications and Allergies Home Medications Medication Instructions Recorded Confirmed Type losartan 50 mg tablet 50 mg PO DAILY #90 tabs 11/03/21 09/22/22 Rx magnesium 200 mg tablet 200 mg PO DAILY 09/22/22 09/22/22 History Allergies Allergy/AdvReac Type Severity Reaction Status Date / Time No Known Allergies Allergy Verified 09/26/22 07:16 Vital Signs Vital Signs - 24 hr 09/26/22 06:53 Temperature 36.7 C Pulse Rate 78 Respiratory Rate 18 Blood Pressure 150/71 H Pulse Oximetry 99 Oxygen Delivery Room Air Exam Const: General: cooperative, healthy appearing and no acute distress HENMT: Head: normal to inspection Eyes: General: appearance normal, both eyes and all related structures Chest: Chest palpation & inspection: normal inspection of the chest Resp: Effort & Inspection: normal respiratory effort Cardio: Rate: regular rate Rhythm: regular rhythm : Penis: Yes circumcised Meatus: other (stenosis) Assessment and Plan Assessment and plan (1) Urethral stricture: Code(s): N35.919 - Unspecified urethral stricture, male, unspecified site Status: Acute Assessment and Plan: Plan for cysto, urethral dilation, possible retrograde urethrogram, meatotomy
--- NOTE | 2022-09-26 07:32 | WPDHPUPDATE1 ---
History and Physical Update Update Date/Time: 09/26/22 07:32 History and Physical has been reviewed, including an updated exam of the patient. There are NO changes in the patient's condition. Risks, benefits, and alternatives have been discussed and questions answered. Patient agrees to proceed with procedure.
[2022-09-26] MEDS: LACTATED RINGERS 1,000 ML 30 ML IV CONT (07:38)
--- NOTE | 2022-09-26 07:52 | P.PNAN_ITS ---
Anes - Initial Pre Proc Eval Procedure: Operation Date: 09/26/22 08:30 Proposed Procedures p Cystoscopy, Urethral Dilatation, Possible Retrograde Urethrogram - Bernard Niño MD s Possible Meatotomy - Bernard Niño MD Date/Time: 09/26/22 07:52 Surgeon: Bernard Niño MD Pre Op Diagnosis: Urethral Stricture, Hematuria Patient Data Age: 66 Gender: M Height: 1.78 m Weight: 110 kg Last Vital Signs Temp 36.7 C 09/26/22 06:53 Pulse 78 09/26/22 06:53 Resp 18 09/26/22 06:53 BP 150/71 H 09/26/22 06:53 Pulse Ox 99 09/26/22 06:53 O2 Del Method Room Air 09/26/22 06:53 Allergies Allergy/AdvReac Type Severity Reaction Status Date / Time No Known Allergies Allergy Verified 09/26/22 07:16 Home Medications Medication Instructions Recorded Confirmed Type losartan 50 mg tablet 50 mg PO DAILY #90 tabs 11/03/21 09/22/22 Rx magnesium 200 mg tablet 200 mg PO DAILY 09/22/22 09/22/22 History Patient hx anesthesia problems: none Family hx anesthesia problems: none Results Review: All pre-operative results and documents have been reviewed as part of the pre- operative evaluation. [facility] Past Medical History Medical History History of adenomatous polyp of colon Hyperglyceridemia Hypertension Metabolic acidosis Obesity Surgical History Surgical History History of intraocular lens implant Family History Family History Mother Kidney disease Other Cancer Social History Social History Smoking packs per day: 1 Smoking cigarettes per day: 20.0 Years smoked: 15 Smoking pack-years: 15.00 Smoking status: Former smoker Tobacco type: cigarettes Second hand tobacco smoke exposure: No Smoking end date: 10/08/94 Alcohol intake: current Drinks per week: 4 Substance use: never Substance use type: does not use Gender identity (if verbalized by the patient): Male Spiritual care concerns: No Anes - Eval Final PreProcedure Day of Procedure 09/26/22 07:52 Patient weight: obese Heart: regular rate and rhythm Lungs: clear to auscultation Airway: Mallampati scale class II Neurological: alert and oriented Last oral intake: >/= 8 hours ASA classification: III Emergent: no Anesthetic plan: proceed Anesthesia type and monitoring: general LMA and standard monitoring Results Review: All pre-operative results and documents have been reviewed as part of the pre- operative evaluation. Informed Consent: The patient's anesthetic plan and its attendant risks and benefits were discussed with the patient/family/POA. Questions were solicited and answers provided to the satisfaction of the patient/family/POA.
[2022-09-26] MEDS: ceFAZolin 2 GM/D5W 50 ML 2 GM/50 ML BAG IVPB (08:12)
[2022-09-26] MEDS: LIDOCAINE HCL 2% GEL UROJET 10 ML PKG MUCOUS MEM (08:41)
--- NOTE | 2022-09-26 08:53 | W.PM.PROC2 ---
Procedure Note - Detailed Date of Procedure 09/26/22 Pre-op Diagnosis Urethral Stricture, Hematuria Post-op Diagnosis Same Procedure Performed Urethral dilation, cystoscopy, complex Robertson catheter placement Surgeon Bernard Niño MD Anesthesia General Findings Extremely tight fossa navicularis stricture Description of Procedure Patient is taken to the operative suite correctly identified. Once anesthesia was obtained was placed in dorsal lithotomy position and prepped and draped usual sterile fashion. A could not place any of the scope into the meatus. I could not even really visualize adequately the opening. I then used a [employer] wire and was able to manipulate it through a very pinpoint opening. This was confirmed with fluoroscopic guidance that the wire coiled in the bladder. I then used Amplants dilators and dilated up to 20 [place]ian. A 19 B[place]udian cystoscope was then inserted into the meatus. There were no other strictures noted. Prostate had some mild lateral lobe hypertrophy. The bladder itself was without any evidence of tumors. I then placed an 18 [place] tip catheter over the wire into the bladder. 10 cc were placed into the balloon. Patient was taken recovery stable condition. Plan is to remove the catheter on Sunday and teach patient self dilatation. Please send a copy this report to my office. Estimated Blood Loss 0 Drains Yes Packing No Pathology None sent Complications No immediate complications Condition Stable Disposition PACU
--- NOTE | 2022-09-26 11:02 | SUR.PHASEII ---
RN switched patient to a leg bag and gave him a new 2000mL bag for night time if he wants to use it.
== END 2022-09-26 10:55 | disposition home or self-care (01) ==
PROVIDERS: PCP Family Medicine; Visit Provider Urology
PROC: 0T7D8ZZ Dilation of Urethra, Via Natural or Artificial Opening Endoscopic (ICD-10-PCS; CPT 52281; principal; 2022-09-26 08:30)
DX: N35.911 Unspecified urethral stricture, male, meatal (principal); N40.0 Benign prostatic hyperplasia without lower urinary tract symptoms; R31.9 Hematuria, unspecified; I10 Essential (primary) hypertension; E66.9 Obesity, unspecified; Z68.34 Body mass index [BMI] 34.0-34.9, adult; Z87.891 Personal history of nicotine dependence
CPT/HCPCS: 52281; 99199; A9270; C1726; C1769; J0690; J1100; J2405; J2704; J3010; J7120

== ENCOUNTER 2023-01-01 11:30 | Outpatient (CLI) | payer MEDICARE, OTHER, SELFPAY ==
[2023-01-01 13:05] LABS: Alanine Aminotransferase 33 U/L (6-50); Albumin Level 4.3 g/dL (3.5-5.1); Alkaline Phosphatase 79 U/L (38-126); Anion Gap 7 mmol/L (8-16); Aspartate Amino Transferase 33 U/L (17-59); Blood Urea Nitrogen 21 mg/dL (9-20); Calcium 9.2 mg/dL (8.4-10.2); Carbon Dioxide 27 mmol/L (22-30); Chloride 105 mmol/L (98-107); Estimated Glomerular Filt Rate 55; Glucose 92 mg/dL (65-110); Sodium 139 mmol/L (137-145)
== END 2023-01-01 11:31 | disposition home or self-care (01) ==
PROVIDERS: PCP Family Medicine; Visit Provider Family Medicine
DX: I10 Essential (primary) hypertension (principal)
CPT/HCPCS: 36415; 80053

== ENCOUNTER 2023-01-09 01:12 | Day surgery (SDC) | payer MEDICARE, OTHER, SELFPAY ==
--- NOTE | 2022-12-29 09:14 | PC.NURSE ---
Report to the Outpatient Waiting Room, entrance under the green pavilion located off [facility], at time 1100 on date __01/09/23 . Planned Procedure Time: __1300 . Time changes happen often and if your time is changed the preop area will call you the afternoon before. - You and your visitor will be asked to self-screen and do not enter if you have any COVID symptoms. - Only one visitor is requested with a max of two and NO children visitors are allowed at this time. - The patient visitor may be requested to leave or wait in car when not with patient due to distancing restrictions. - A mask is optional within the hospital at this time. Patients may have clear liquids (water, carbonated beverages, clear teas, apple juice) until 3 hours prior to surgery with a maximum of 20 ounces. - No food from midnight until time of surgery - Infants may have breast milk until 4 hours before surgery, formula 6 hours prior to surgery. - Children will be allowed to drink immediately following surgery. If applicable, please bring a bottle or sippy cup to assist with drinking. Juice, water, soda, and popsicles are readily available. For infants on formula, please bring formula the day of surgery. Pacifiers are allowed. Take the following medications with a SIP of water the morning of surgery: ____NONE DO NOT STOP ANY OF YOUR OTHER PRESCRIPTION MEDICATIONS PRIOR TO SURGERY ?EXCEPT THE FOLLOWING Medications to discontinue per physician ____MAGNESIUM HOLD 3 DAYS .LAST DOSE 01/05/23 Please no make-up, nail uzbek, hairspray, perfume, deodorant, or body powder the day of surgery. No jewelry (including any body piercings) or valuables the day of surgery, leave them at home. Please take a shower or bath the night before, or the morning of, surgery with an antibacterial soap. Wear comfortable, loose fitting clothing. Children are encouraged to wear pajamas. - Jewelry must be removed prior to entering the operating room. Rings and piercings that are not removed may be cut off. - The hospital will not accept responsibility for valuables. - Please leave all valuables, including medications, at home the day of surgery. If you are going home after surgery, a licensed bulk driver must drive you home. - NO public transportation without another adult if you receive anesthesia. - We recommend that an adult stay with you for 24 hours following discharge. - We also recommend that you do not drive, make important decision, drink alcoholic beverages, or take any drugs that were not prescribed by your health care provider for at least 24 hours after your discharge time. For Pediatric surgeries, we recommend two adults accompany the child home. Follow any additional instructions given to you from your surgeon. If you or anyone in your household have experienced Covid symptoms in the past week, please notify your surgeon or the nurse liaison at the phone number below for possible testing. Telephone instructions given to __PATIENT and asked if any additional questions and then verbalized understanding. Patient advised to call surgeon office or pre surgery nurse liaison [phone] if any additional questions.
[2022-12-29 09:24] VITALS: BMI 34.0
[2023-01-09] VITALS (7 sets, daily range): BP systolic 136–165; BP diastolic 76–92; PULSE 76–84; RESP 14–18; TEMP 36.2–36.3; O2SAT 96–99
--- NOTE | ~2023-01-09 | XR_ITS ---
EXAMINATION: XR fluoroscopy no charge DATE: 01/09/2023 13:00 CDT INDICATION: CYSTOSCOPPY / URETHRAL DILATATION . TECHNIQUE: 3 fluoroscopic images of the abdomen and pelvis were obtained during cystoscopy/urethral d ilation performed by the surgeon. I was not present in the operating room. Fluoroscopy exposure time was 8 seconds. DAP [id number] [id number]. COMPARISON: 09/26/2022 FINDINGS: No abnormal calcification. Faint contrast filling of the urinary bladder. Catheter and wire access to the urinary bladder. IMPRESSION: Fluoroscopic documentation of cystoscopy/ureteral dilation. Please refer to the operative note for co mplete procedural details . Reviewed, dictated and finalized at location K. IMPRESSION: Fluoroscopic documentation of cystoscopy/ureteral dilation. Please refer to the operative note for complete procedural details .
--- NOTE | 2023-01-09 08:49 | WPDANESEPPF ---
Anes - Initial Pre Proc Eval Procedure: Operation Date: 01/09/23 13:00 Proposed Procedures p Cystoscopy, Urethral Dilatation with Fluoroscopy - Bernard Niño MD Date/Time: 01/09/23 08:49 Surgeon: Bernard Niño MD Pre Op Diagnosis: urethral stricture Patient Data Age: 67 Gender: M Height: 1.78 m Weight: 107.5 kg Allergies Allergy/AdvReac Type Severity Reaction Status Date / Time No Known Allergies Allergy Verified 01/01/23 10:40 Home Medications Medication Instructions Recorded Confirmed Type magnesium 200 mg tablet 250 mg PO DAILY 09/22/22 01/09/23 History losartan 50 mg tablet 50 mg PO DAILY #90 tabs 11/06/22 01/09/23 Rx meclizine 12.5 mg tablet 12.5 mg PO PRN PRN Dizziness 12/29/22 01/09/23 History Patient hx anesthesia problems: none Family hx anesthesia problems: none Results Review: All pre-operative results and documents have been reviewed as part of the pre-operative evaluation. [facility] Past Medical History Medical History History of adenomatous polyp of colon Hyperglyceridemia Hypertension Metabolic acidosis Obesity Surgical History Surgical History History of intraocular lens implant Family History Family History Mother Kidney disease Other Cancer Social History Social History Smoking packs per day: 1 Smoking cigarettes per day: 20.0 Years smoked: 15 Smoking pack-years: 15.00 Smoking status: Former smoker Tobacco type: cigarettes Second hand tobacco smoke exposure: No Smoking end date: 10/08/96 Alcohol intake: current Drinks per week: 3 Substance use: never Substance use type: does not use Living arrangements: alone Occupation/Education: occupation Gender identity (if verbalized by the patient): Male Sexual Orientation (if Verbalized by the Patient): Straight or Heterosexual Spiritual care concerns: No Anes - Eval Final PreProcedure Day of Procedure 01/09/23 08:49 Patient weight: obese Heart: regular rate and rhythm Lungs: clear to auscultation Airway: Mallampati scale class II Neurological: alert and oriented Last oral intake: >/= 8 hours ASA classification: III Emergent: no Anesthetic plan: proceed Anesthesia type and monitoring: general LMA and standard monitoring Results Review: All pre-operative results and documents have been reviewed as part of the pre-operative evaluation. Informed Consent: The patient's anesthetic plan and its attendant risks and benefits were discussed with the patient/family/POA. Questions were solicited and answers provided to the satisfaction of the patient/family/POA.
[2023-01-09] MEDS: LACTATED RINGERS 1,000 ML 30 ML IV CONT (11:30)
--- NOTE | 2023-01-09 11:54 | WPDHPUPDATE1 ---
History and Physical Update Update Date/Time: 01/09/23 11:54 History and Physical has been reviewed, including an updated exam of the patient. There are NO changes in the patient's condition. Risks, benefits, and alternatives have been discussed and questions answered. Patient agrees to proceed with procedure. Proceed with cysto, urethral dilatation
[2023-01-09] MEDS: ceFAZolin 2 GM/D5W 50 ML 2 GM/50 ML BAG IVPB (12:57)
[2023-01-09] MEDS: LIDOCAINE HCL 2% GEL UROJET 10 ML PKG MUCOUS MEM (13:09)
--- NOTE | 2023-01-09 13:30 | P.OP_ITS ---
Procedure Note - Detailed Date of Procedure 01/09/23 Pre-op Diagnosis urethral stricture Post-op Diagnosis Same Procedure Performed Urethral dilatation with Amplantz dilators, cystoscopy, complex Robertson placement 18 [place] tip Surgeon Bernard Niño MD Anesthesia General Description of Procedure Patient was taken to the operative suite correctly identified. Once anesthesia was obtained he was prepped draped usual sterile fashion. Patient has a very tight pinhole opening at the fossa navicularis. I was able to manipulate a Glidewire through the opening up into the bladder and this was visualized under fluoroscopy. I then dilated with Amplantz dilators from 8 [place]dean to 22 [place]an. A 19 [place] cystoscope was then inserted into the urethra. There were no other strictures noted. Prostate has some mild lateral lobe hypertrophy. The bladder was entered. There were no tumors noted in the bladder. 2% viscous lidocaine was then inserted into the urethra. A 2 [place] tip was then passed over the guidewire and 10 cc were is in which inserted into the balloon. Patient was then taken recovery stable condition. Will plan on Robertson catheter removal on . He will need to be taught self dilatation daily for 1 week then every other day for another week then every 3rd day for 3rd week and then hopefully down to once a a week for a month. Please send a copy of op note to my office Estimated Blood Loss 0 Drains Yes Packing No Pathology None sent Complications No immediate complications Condition Stable Disposition PACU
== END 2023-01-09 15:02 | disposition home or self-care (01) ==
PROVIDERS: PCP Family Medicine; Visit Provider Urology
PROC: 0T7D8ZZ Dilation of Urethra, Via Natural or Artificial Opening Endoscopic (ICD-10-PCS; CPT 52281; principal; 2023-01-09 13:00)
DX: N35.916 Unspecified urethral stricture, male, overlapping sites (principal); I10 Essential (primary) hypertension; E66.9 Obesity, unspecified; Z68.34 Body mass index [BMI] 34.0-34.9, adult; Z87.891 Personal history of nicotine dependence
CPT/HCPCS: 52281; 99199; C1726; C1769; J0690; J1100; J2250; J2405; J2704; J3010; J7120

== ENCOUNTER 2023-09-01 11:09 | Outpatient (CLI) | payer MEDICARE, OTHER, SELFPAY ==
[2023-09-01 11:41] LABS: Hematocrit 49.4 % (42.0-52.0); Hemoglobin 16.5 g/dL (14.0-18.0); Mean Corpuscular HGB Conc 33.4 g/dl (32-36); Mean Corpuscular Hemoglobin 29.7 pg (26-34); Mean Corpuscular Volume 88.8 fl (80-100); Mean Platelet Volume 10.9 fl (7.4-10.4); Platelet Count Result 207 k/mm3 (150-375); Red Blood Count 5.56 M/mm3 (4.6-6.20); Red Cell Distribution Width 12.5 % (11.5-14.5); White Blood Count 6.3 K/mm3 (4.5-10.0)
[2023-09-01 11:48] LABS: Appearance Urine Clear (Clear); Bacteria Urine None Seen /hpf; Bilirubin Urine Negative (Negative); Blood Urine 1+ (Negative); Color Urine Yellow (Yellow); Glucose Urine UA Negative (Negative); Ketones Urine Trace mg/dL (Negative); Leukocyte Esterase Ur Negative LEU/UL (NEGATIVE); Nitrate Urine Negative (Negative); Non Pathogenic Casts 0-2; Protein Urine 1+ mg/dL (Negative); RBC Urine 0-2 /hpf (0-2); Specific Grav Ur 1.021 (1.001-1.035); Squamous Epithelial Cell Urine None seen /hpf (Few); WBC Urine 0-5 /hpf (0-3); pH Urine 5.5 (5.0-9.0)
[2023-09-01 11:51] LABS: Add Urine Microscopic? YES
[2023-09-01 11:56] LABS: Alanine Aminotransferase 36 U/L (6-50); Albumin Level 4.2 g/dL (3.5-5.1); Alkaline Phosphatase 80 U/L (38-126); Anion Gap 11 mmol/L (8-16); Aspartate Amino Transferase 30 U/L (17-59); Blood Urea Nitrogen 23 mg/dL (9-20); Calcium 9.6 mg/dL (8.4-10.2); Carbon Dioxide 23 mmol/L (22-30); Chloride 103 mmol/L (98-107); Cholesterol 217 mg/dL (0-200); Estimated Glomerular Filt Rate 55; Glucose 112 mg/dL (65-110); HDL Direct 28 mg/dL; Potassium 4.5 mmol/L (3.4-5.0); Sodium 137 mmol/L (137-145); Triglycerides 227 mg/dL (<150)
[2023-09-01 12:07] LABS: LDL Cholesterol Direct 121 mg/dL
== END 2023-09-01 11:10 | disposition home or self-care (01) ==
LOC: ANHLAB 11:15
PROVIDERS: PCP Family Medicine; Visit Provider Family Medicine
DX: E78.1 Pure hyperglyceridemia (principal); I10 Essential (primary) hypertension; R53.83 Other fatigue; N17.9 Acute kidney failure, unspecified; E78.5 Hyperlipidemia, unspecified; R35.1 Nocturia
CPT/HCPCS: 36415; 80053; 80061; 81001; 84443; 85027

== ENCOUNTER 2024-08-19 11:11 | Outpatient (CLI) | payer MEDICARE, OTHER, SELFPAY ==
--- NOTE | ~2024-08-19 | US_ITS ---
EXAMINATION: US aorta [facility] DATE: 08/19/2024 11:58 INDICATION: Encounter for screening for cardiovascular disorders TECHNIQUE: Grayscale, color Doppler, and pulsed Doppler images of the aorta and common iliac arteries were obtained. COMPARISON: None. FINDINGS: The proximal aorta measures 2.0 cm in AP diameter. The mid aorta measures 1.3 cm. The distal aorta me asures 1.3 cm. The right common iliac artery measures 0.8 cm. The left common iliac artery measures 1 .3 cm. IMPRESSION: 1. Normal caliber abdominal aorta. Reviewed, dictated and finalized at location B. [employer]
[2024-08-19 11:27] LABS: Hematocrit 48.2 % (42.0-52.0); Hemoglobin 16.4 g/dL (14.0-18.0); Mean Corpuscular Hemoglobin 30.1 pg (26-34); Mean Corpuscular Volume 88.6 fl (80-100); Mean Platelet Volume 10.8 fl (7.4-10.4); Platelet Count Result 175 k/mm3 (150-375); Red Blood Count 5.44 M/mm3 (4.6-6.20); Red Cell Distribution Width 12.4 % (11.5-14.5); White Blood Count 5.8 K/mm3 (4.5-10.0)
[2024-08-19 11:53] LABS: Alanine Aminotransferase 38 U/L (6-50); Albumin Level 4.3 g/dL (3.5-5.1); Alkaline Phosphatase 76 U/L (38-126); Anion Gap 8 mmol/L (4-12); Aspartate Amino Transferase 31 U/L (17-59); Bilirubin,Total 0.7 mg/dL (0.2-1.3); Blood Urea Nitrogen 22 mg/dL (9-20); Carbon Dioxide 26 mmol/L (22-30); Chloride 103 mmol/L (98-107); Cholesterol 182 mg/dL (0-200); Estimated Glomerular Filt Rate 55; Glucose 106 mg/dL (65-110); HDL Direct 30 mg/dL; Magnesium 1.9 mg/dL (1.6-2.3); Potassium 4.5 mmol/L (3.4-5.0); Sodium 137 mmol/L (137-145); Triglycerides 200 mg/dL (<150)
[2024-08-19 12:03] LABS: Add Urine Microscopic? YES; Appearance Urine Clear (Clear); Bacteria Urine None Seen /hpf; Bilirubin Urine Negative (Negative); Blood Urine 2+ (Negative); Color Urine Yellow (Yellow); Glucose Urine UA Negative (Negative); Ketones Urine Negative (Negative); Leukocyte Esterase Ur Negative LEU/UL (Negative); Nitrate Urine Negative (Negative); Non Pathogenic Casts 0-2; Protein Urine 1+ mg/dL (Negative); Specific Grav Ur 1.018 (1.001-1.035); Squamous Epithelial Cell Urine None Seen /hpf (Few); Urobilinogen Urine 0.2 mg/dL (<2.0); WBC Urine 0-5 /hpf (0-3); pH Urine 6.5 (5.0-9.0)
[2024-08-19 12:04] LABS: LDL Cholesterol Direct 110 mg/dL
[2024-08-19 12:08] LABS: Prostate Specific Antigen 1.7 ng/mL (< OR = 4.0)
== END 2024-08-19 11:12 | disposition home or self-care (01) ==
PROVIDERS: PCP Family Medicine; Visit Provider Family Medicine
DX: N17.9 Acute kidney failure, unspecified (principal); E78.5 Hyperlipidemia, unspecified; I10 Essential (primary) hypertension; R35.1 Nocturia; R79.0 Abnormal level of blood mineral; Z12.5 Encounter for screening for malignant neoplasm of prostate
CPT/HCPCS: 36415; 76706; 80053; 80061; 81001; 83735; 84153; 84443; 85027

== ENCOUNTER 2024-11-24 01:20 | Day surgery (SDC) | payer MEDICARE, OTHER, SELFPAY ==
[2024-11-06 15:11] VITALS: BMI 35.4
--- OUTSIDE RECORDS SUMMARY | 2024-11-24 01:24 | XMS_ITS | Referral Summary ---
Author Organization [facility] Address [address] [place] [address] Care Team Providers Care Head Insulation Board Saw Operator Name Role Phone Unavailable Primary Care Provider Unavailabl e Source Comments [facility],non-owned Affiliates and Associated Physician Practices is amultiple site organization consisting of ambulatory clinics and hospital sitesin [place], [place], [place] and [place]. This disclosure is being madepursuant to the Care Everywhere program and may not contain all information available regarding this patient. Last updated 18.[facility] [employer] Social History Tobacco Use Types Packs/Day Years Used Date Smoking Tobacco: Never Assessed Sex and Gender Information Value Date Recorded Sex Assigned at Not on file Gender Identity Not on file Sexual Orientation Not on file Plan of Treatment Not on file
--- OUTSIDE RECORDS SUMMARY | 2024-11-24 01:24 | XMS_ITS | Patient Health Summary ---
Author Organization [facility] Address [address] [place] [address] Care Team Providers Care Emu Farm Worker Name Role Phone Unavailable Primary Care Provider Unavailabl e Note from [facility],non-owned Affiliates and Associated Physician Practices is amultiple site organization consisting of ambulatory clinics and hospital sitesin [place], [place], [place] and [place]. This disclosure is being madepursuant to the Care Everywhere program and may not contain all information available regarding this patient. Last updated 18.[facility] Social History Tobacco Use Types Packs/Day Years Used Date Smoking Tobacco: Never Assessed Sex and Gender Information Value Date Recorded Sex Assigned at Not on file Gender Identity Not on file Sexual Orientation Not on file Procedures * SARS-COV-2 (COVID-19) IN HOUSE(Performed 05/08/2020) Performed for Screening for viral disease Results * SARS-COV-2 (COVID-19) IN HOUSE (05/08/2020 3:37 PM CDT) COVID-19 PCR Not detected Not detected, Invalid 05/10/2020 5:16 AM CDT [facility] Microbiology SPECIMEN FROM NASOPHARYNGEAL STRUCTURE / Unknown Collection / Unknown 05/08/2020 3:37 PM CDT 05/09/2020 8:56 AM CDT Narrative [facility] - 05/10/2020 5:16 AM CDT This Real Time RT-PCR assay was developed and its performance characteristics determined by [facility]. This test has been authorized by the Food and Drug administration (FDA)under an Emergency Use Authorization (EUA). This test has been validated in accordance with the FDA's guidance document Policy for Diagnostic Testing in Laboratories Certified to perform High Complexity Testing under CLIA prior to Emergency Use Authorization for Coronavirus Disease-2019 during the Public Health Emergency issued on December 06, 2019. FDA independent review of this validation is pending. This test is only authorized for the duration of time the declaration that circumstances exist justifying the authorization of emergency use of in vitro diagnostic tests for detection of SARS-CoV-2 virus and/or diagnosis of COVID-19 infection under section 564(b)(1) of the Act, 21 U.S.C 360bbb-3 (b)(1), unless the authorization is terminated or revoked sooner. Pawan Jimenez MD LAB - MICROBIOLOGY O RDERABLES [facility] [address] [place], [place] [address], [facility] [phone]
--- OUTSIDE RECORDS SUMMARY | 2024-11-24 01:24 | XMS_ITS | Clinical Summary ---
Author Organization [facility] Address [address] [place] [address] Care Team Providers Care Medical Aides Teacher Name Role Phone Unavailable Primary Care Provider Unavailabl e Source Comments [facility] [employer],non-owned Affiliates and Associated Physician Practices is amultiple site organization consisting of ambulatory clinics and hospital sitesin [place], [place], [place] and [place]. This disclosure is being madepursuant to the Care Everywhere program and may not contain all information available regarding this patient. Last updated 18.[facility] [employer] Social History Tobacco Use Types Packs/Day Years Used Date Smoking Tobacco: Never Assessed Sex and Gender Information Value Date Recorded Sex Assigned at Not on file Gender Identity Not on file Sexual Orientation Not on file Plan of Treatment Health Maintenance Due Date Last Done Comments COLOGUARD (AGES 45-75) - COL ON CA SCREENING 1956 COLON MONITORING 1956 COLONOSCOPY - COLON CA SCREENING 1956 CT COLONOGRAPHY - COLON CA SCREENING 1956 Colorectal Cancer Screening 1956 FIT - COLON CA SCREENING 1956 FLEX SIG - COLON CA SCREENING 1956 LIPID TESTING 1956 HEPATITIS C SCREENING 10/19/1974 DTAP/TDAP/TD VACCINES (1 - Tdap) 1975 PNEUMOCOCCAL VACCINE 50+ (1 of 1 - PCV) 2006 ZOSTER VACCINE (1 of 2) 2006 COVID-19 VACCINE ( - 2023-2 5 season) 2024 INFLUENZA VACCINE (#1) 2024 DEPRESSION SCREENING 10/08/2024 Respiratory Syncytial Virus (RSV) Vaccine Pt: or over 60 yrs (1 - 1-dose 75+ series) 2031 HEPATITIS B VACCINE Aged Out No longe r eligible based on patient's age to complete this topic HIB VACCINE Aged Out No longer eligi ble based on patient's age to complete this topic HPV VACCINE Aged Out No longer eligi ble based on patient's age to complete this topic MENINGOCOCCAL (Group B) VACCINE Aged Out No longer eligible based on patient's age to complete this topic MENINGOCOCCAL VACCINE Aged Out No edgard nancy eligible based on patient's age to complete this topic
[2024-11-24 10:06] VITALS: BP 123/65; PULSE 99; RESP 16; TEMP 35.8; O2SAT 93; BMI 36.3
[2024-11-24] MEDS: LACTATED RINGERS 1,000 ML 150 ML IV CONT (10:37)
--- NOTE | 2024-11-24 10:54 | P.PNAN_ITS ---
Anes - Initial Pre Proc Eval Procedure: Operation Date: 11/24/24 11:00 Proposed Procedures p Screening Colonoscopy - Ruiz Zhu MD Date/Time: 11/24/24 10:54 Surgeon: Ruiz Zhu MD Pre Op Diagnosis: history of colon polyps Patient Data Age: 69 Gender: M Height: 1.78 m Weight: 115.1 kg Last Vital Signs Temp 96.4 F L 11/24/24 10:06 Pulse 99 11/24/24 10:06 Resp 16 11/24/24 10:06 BP 123/65 11/24/24 10:06 Pulse Ox 93 11/24/24 10:06 O2 Del Method Room Air 11/24/24 10:06 Allergies Allergy/AdvReac Type Severity Reaction Status Date / Time No Known Allergies Allergy Verified 11/24/24 10:16 Home Medications ?Medication ?Instructions ?Recorded ?Confirmed ?Type magnesium 200 mg tablet 250 mg PO DAILY 09/22/22 11/24/24 History losartan 50 mg tablet 50 mg PO DAILY #90 tabs 07/22/24 11/24/24 Rx Patient hx anesthesia problems: none Family hx anesthesia problems: none Results Review: All pre-operative results and documents have been reviewed as part of the pre- operative evaluation. [facility] Past Medical History Medical History Metabolic acidosis History of adenomatous polyp of colon Obesity Hyperglyceridemia Hypertension Surgical History Surgical History History of intraocular lens implant Family History Family History Mother Kidney disease Other Cancer Social History Social History Smoking packs per day: 1 Smoking cigarettes per day: 20.0 Years smoked: 20 Smoking pack-years: 20.00 Smoking status: Former smoker Tobacco type: cigarettes Second hand tobacco smoke exposure: No Smoking end date: 10/08/96 Additional smoking assessment comments: Stopped at age 43 Alcohol intake: current Drinks per week: 3 Substance use: never Substance use type: does not use Living arrangements: alone Occupation/Education: occupation Gender identity (if verbalized by the patient): Male Sexual Orientation (if Verbalized by the Patient): Straight or Heterosexual Spiritual care concerns: No Anes - Eval Final PreProcedure Day of Procedure 11/24/24 10:54 Patient weight: obese Lungs: normal air movement Airway: Mallampati scale class II and special considerations (Missing several L upper and L lower teeth, none loose. ) Neurological: alert and oriented Last oral intake: >/= 8 hours ASA classification: III Emergent: no Anesthetic plan: proceed Anesthesia type and monitoring: general GIVS and standard monitoring Results Review: All pre-operative results and documents have been reviewed as part of the pre- operative evaluation. HTN, obestiy, borderline hyperlipidemia, no meds yet. Informed Consent: The patient's anesthetic plan and its attendant risks and benefits were discussed with the patient/family/POA. Questions were solicited and answers provided to the satisfaction of the patient/family/POA.
--- NOTE | 2024-11-24 11:17 | PM.IMHP ---
H&P: HPI History of Present Illness Date/Time: 11/24/24 11:17 Chief Complaint: History of colon polyps Narrative: The patient has a history of colonic polyps, the last colonoscopy was approximately 5 years ago. Review of Systems Review of Systems: All systems reviewed & are unremarkable except as noted in HPI and below PMFSH Past Medical History Medical History Metabolic acidosis History of adenomatous polyp of colon Obesity Hyperglyceridemia Hypertension Surgical History Surgical History History of intraocular lens implant Family History Family History Mother Kidney disease Other Cancer Social History Social History Smoking packs per day: 1 Smoking cigarettes per day: 20.0 Years smoked: 20 Smoking pack-years: 20.00 Smoking status: Former smoker Tobacco type: cigarettes Second hand tobacco smoke exposure: No Smoking end date: 10/08/96 Additional smoking assessment comments: Stopped at age 43 Alcohol intake: current Drinks per week: 3 Substance use: never Substance use type: does not use Living arrangements: alone Occupation/Education: occupation Gender identity (if verbalized by the patient): Male Sexual Orientation (if Verbalized by the Patient): Straight or Heterosexual Spiritual care concerns: No Meds Home Medications and Allergies Home Medications ?Medication ?Instructions ?Recorded ?Confirmed ?Type magnesium 200 mg tablet 250 mg PO DAILY 09/22/22 11/24/24 History losartan 50 mg tablet 50 mg PO DAILY #90 tabs 07/22/24 11/24/24 Rx Allergies Allergy/AdvReac Type Severity Reaction Status Date / Time No Known Allergies Allergy Verified 11/24/24 10:16 Vital Signs Vital Signs - 24 hr 11/24/24 10:06 Temperature 96.4 F L Pulse Rate 99 Respiratory Rate 16 Blood Pressure 123/65 Pulse Oximetry 93 Oxygen Delivery Room Air Exam Const: General: cooperative and healthy appearing Resp: Effort & Inspection: normal respiratory effort and able to speak in complete sentences Auscultation: clear to auscultation bilaterally Cardio: Rate: regular rate Rhythm: regular rhythm GI: Inspection: normal to inspection GI Palp: No No hepatosplenomegaly present Auscultation: normal bowel sounds Rectal Exam: deferred Skin: General skin exam: normal color Psych: Appearance: grossly normal Mental Status: mental status grossly normal Assessment and Plan Assessment and plan (1) History of adenomatous polyp of colon: Code(s): Z86.010 - Personal history of colon polyps Status: Acute Assessment and Plan: The patient is deemed a good candidate for the procedure. Consent signed. Will proceed.
[2024-11-24 12:00] VITALS: BP 87/50; PULSE 73; RESP 12; O2SAT 94
[2024-11-24 12:10] VITALS: BP 110/57; PULSE 75; RESP 19; O2SAT 99
[2024-11-24 12:20] VITALS: BP 129/74; PULSE 71; RESP 19; O2SAT 98
== END 2024-11-24 12:33 | disposition home or self-care (01) ==
PROVIDERS: PCP Family Medicine; Referring Provider Family Medicine; Visit Provider Internal Medicine Gastroenterology
PROC: 0DJD8ZZ Inspection of Lower Intestinal Tract, Via Natural or Artificial Opening Endoscopic (ICD-10-PCS; CPT 45378; principal; 2024-11-24 11:00)
DX: Z12.11 Encounter for screening for malignant neoplasm of colon (principal); D12.2 Benign neoplasm of ascending colon; K57.30 Diverticulosis of large intestine without perforation or abscess without bleeding; Z87.891 Personal history of nicotine dependence; E66.9 Obesity, unspecified; Z68.36 Body mass index [BMI] 36.0-36.9, adult
CPT/HCPCS: 45381; 45385; 88305; J2003; J2371; J2704; J7120